=== PATIENT | male | born 1950 | race Two or more races ===

== ENCOUNTER 2024-04-14 10:16 | Outpatient (AMB) | payer MEDICARE, MEDICAID, SELFPAY ==
[2024-04-14 10:23] VITALS: BP 122/74; PULSE 68; RESP 19; TEMP 36.6; O2SAT 94; BMI 33.6
--- NOTE | 2024-04-14 10:23 | PD.GSCLVISIT ---
Vital Signs - [facility] 04/14/24 10:23 Height 1.63 m Height Method Stated Weight 89.443 kg Weight Measurement Method Standing Scale BMI 33.6 BP 122/74 Blood Pressure Source Automatic Cuff Blood Pressure Location Right Upper Arm Position Sitting Respiration 19 Pulse 68 Pulse Source Monitor Temp 97.8 F Temp Source Temporal Artery Scan Pulse Oximetry (%) 94 L Oxygen Delivery Method Room Air Med/Allergies Allergies & Medications Allergies No Known Allergies Allergy (Verified 04/14/24 10:25) Medication Reconciliation lisinopril 40 mg tablet 40 mg PO QDAY 04/06/23 [History Confirmed 04/14/24] tamsulosin 0.4 mg capsule 0.4 mg PO QDAY 03/28/24 [History Confirmed 04/14/24] hydrocortisone 2.5 % topical cream with perineal applicator 1 applic [place] QDAY 03/29/24 [History Confirmed 04/14/24] mesalamine 1,000 mg rectal suppository 1,000 mg WI QHSPRN PRN Pain 03/29/24 [History Confirmed 04/14/24] terbinafine HCl 250 mg tablet 250 mg PO QDAY 03/29/24 [History Confirmed 04/14/24] MA Intake Visit Data Collection New Patient or Established: Established Patient (seen at [facility] within 3 years) Seen by Clinical Staff ONLY (RN/MA): No Reason for Visit:: COLONOSCOPY RESULTS Pain Present Currently: No 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 NO MEDS FOR LONG TIME) and Pneumonia (1 YEAR AGO DUE TO COVID); Negative Chronic Obstructive Pulmonary Disease (COPD) GASTROINTESTINAL: Positive Gastrointestinal Disorders, Diverticulosis, Hemorrhoids and Gastroesophageal Reflux Disease GENITOURINARY: Positive Genitourinary Disorders, Prostate Cancer (HAD SURGERY) and Benign Prostatic Hyperplasia; Negative Renal Disease ENT: Positive Cataracts (ou iol); Negative Glaucoma ENDOCRINE: Negative Endocrine Disorders, Diabetes Mellitus Type 1 or Diabetes Mellitus Type 2 HEMATOLOGIC: Negative Blood Disorders, Anemia or Sickle Cell Disease OTHER HISTORY: Positive Cancer and Prostate Cancer (HAD SURGERY); Negative Falls, Blood Transfusions, Anesthesia Reactions, MRSA, Chicken Pox, Measles or Mumps Surgical History SURGICAL: Positive Abdominal Surgery and Transurethral Resection Social History SMOKING STATUS: Smoking status: Former smoker ALCOHOL: Alcohol Intake: Former ALCOHOL FREQUENCY: Alcohol Intake Frequency: A Few Times a Week HOUSING: Housing: House HPI HPI Narrative Spoke to pt with in-person injection specialist 73M here to follow up colonoscopy. Pt reports feeling well overall, he does have symptoms from hemorrhoids and reports constipation, admits drinking more soda than water ROS Review of Systems Systems Reviewed: All systems reviewed, normal except as documented Objective/Exam General General Appearance: alert, cooperative and well groomed Resp Respiratory exam: Absent respiratory distress Results Colonoscopy report reviewed, polyp hyperplastic Assessment & Plan Diagnosis / Problem List (1) Encounter to discuss colonoscopy results: Status: Acute Assessment & Plan: 73M with average risk s/p colonoscopy with findings of diverticulosis, hyperplastic polyp and internal hemorrhoids. I explained to pt that his next colonoscopy would not be due for 10 years, but since he will be 83 he does not necessarily need to have any more screening. I also encouraged him to increase water intake to improve constipation and hemorrhoid symptoms Advanced Care Planning Advance care planning discussed with:: patient Office Procedures GNS Level of Care Nursing/Assessment Patient Status: Established Patient Nursing Assessment/Reassesment: Medication Reconciliation, Update PMH in EMR and Vital Signs Coordination of Care: Complex Care and Chronic Disease 1-5, Education Complex Pt/Fam, Consent,records obtained, informed consent, Results/Orders obtained and Staff clarify orders Established Patient Charge Established Patient Point Assignment: 95 Established Patient Point Charge: EP Level 3 (80-115) Patient Portal Questionaires Social History Living Situation History Housing: House Tobacco History Smoking Status: Former smoker Alcohol History Alcohol Intake: Former Alcohol Intake Frequency: A Few Times a Week Domestic Abuse History Do You Feel Safe at Home: Yes Review of Systems Report any current symptoms Only answer those that you have currently: Past Medical History Past Medical History Have you ever been diagnosed with any of the following: Neurological Problems Seizures: No Migraine: Yes Cardiology Problems Congestive Heart Failure: No Hypertension: Yes Respiratory Problems Chronic Obstructive Pulmonary Disease (COPD): No Asthma: Yes (CONTROLLED. NO MEDS FOR LONG TIME) Pneumonia: Yes (1 YEAR AGO DUE TO COVID) Stomache/Intestinal Problems Diverticulosis: Yes Hemorrhoids: Yes Gastroesophageal Reflux Disease: Yes Genital/Urinary Problems Renal Disease: No Prostate Cancer: Yes (HAD SURGERY) Benign Prostatic Hyperplasia: Yes Head,Eye,Nose,Throat Problems Cataracts: Yes (ou iol) Glaucoma: No Endocrine Problems Diabetes Mellitus Type 1: No Diabetes Mellitus Type 2: No Blood Problems Anemia: No Sickle Cell Disease: No Other Problems Falls: No Blood Transfusions: No Anesthesia Reactions: No MRSA: No Chicken Pox: No Measles: No Mumps: No Cancer: Yes
== END 2024-04-14 11:05 | disposition home or self-care (01) ==
LOC: HODSRG 10:16
PROVIDERS: PCP Registered Nurse Community Health; Referring Provider Registered Nurse Community Health; Supervising Provider Surgery; Visit Provider Surgery
DX: Z48.815 Encounter for surgical aftercare following surgery on the digestive system (principal); K57.90 Diverticulosis of intestine, part unspecified, without perforation or abscess without bleeding; K63.5 Polyp of colon; K64.8 Other hemorrhoids
CPT/HCPCS: 99213; G0463

== ENCOUNTER 2024-04-24 22:03 | Emergency (ER) | payer MEDICARE, MEDICAID, SELFPAY ==
[2024-04-24 22:04] VITALS: BMI 30.7
[2024-04-24 22:13] VITALS: BP 137/80; PULSE 103; RESP 19; TEMP 36.9; O2SAT 93
--- NOTE | 2024-04-24 22:28 | XR_ITS ---
Examination: PA chest single view Technique: Upright PA chest single view Exam date and time: April 24, 2024 10:32 PM Indications: Coughing beginning one week ago. Findings: Stable pulmonary nodule left lower lobe compared with June 21, 2022 Mild prominence left ventricle Accentuation of bronchovascular markings No lobar pneumonia Impression: Bronchitis pattern
--- NOTE | 2024-04-24 22:29 | EDRME_ITS ---
Rapid Medical Screening Exam [facility] Arrival date/time: 04/24/24 22:03 73M with history of HTN presents to ED with 1 week of worsening cough, SOB, and weakness/dizziness. Patient was seen in clinic and put on Tamiflu (w/o testing), as well as amoxicillin and some cough medicine. Chief Complaint: Flu Like Symptoms Vital signs: Vital Signs Temperature 98.4 F 04/24/24 22:13 Pulse Rate 103 H 04/24/24 22:13 Respiratory Rate 19 04/24/24 22:13 Blood Pressure 137/80 H 04/24/24 22:13 Pulse Oximetry (%) 93 L 04/24/24 22:13 Oxygen Delivery Method Room Air 04/24/24 22:13
--- NOTE | 2024-04-24 22:52 | PD.EDSOB ---
ED SOB =RME/HPI General Chief Complaint: Flu Like Symptoms Stated Complaint: COUGH, DIZZY, HEAD FEELS HEAVY Arrival date/time: 04/24/24 22:03 RME / HPI RME / HPI Narrative: 04/24/24 22:03 73M with history of HTN presents to ED with 1 week of worsening cough, SOB, and weakness/dizziness. Patient was seen in clinic and put on Tamiflu (w/o testing), as well as amoxicillin and some cough medicine. This section includes all my notes and documentations, including HPI, PE, and ED course. Cosme Poon MD HPI: 73-year-old male here with about a week history of worsening cough, productive cough, purulent sputum, and dyspnea. No fever. Has chills on and off. No chest pain. No other complaints. ROS: Respiratory: negative except as documented in HPI. Gastrointestinal: negative except as documented in HPI. Genitourinary: negative except as documented in HPI. Musculoskeletal: negative except as documented in HPI. Skin: negative except as documented in HPI. Neurological: negative except as documented in HPI. Physical Exam: General: Alert and oriented. Hacking cough noted. Eyes: Conjunctivae and lids clear. ENT: No nasal congestion. Pharynx normal. Tympanic membrane normal bilaterally. Neck: Supple. No JVD. Heart: RRR. Lungs: No respiratory distress. Moderately decreased air movement with diffuse rhonchi. Skin: Warm and dry. Neuro: Alert and oriented X 3. I reviewed all diagnostic test results. My interpretation of the EKG is sinus rhythm with nonspecific ST-T changes. My interpretation of the chest x-ray is increased bronchial markings. Blood tests and urine tests are unremarkable. COVID/influenza negative. At this point, diagnoses include bronchitis. Treatment here included prednisone and DuoNeb and Zithromax and Tylenol #3. Significant improvement noted subjectively and objectively. Recommended a trial of treatment at home. Based on my best medical judgment, made decision no further evaluation or treatment indicated at this time. Patient understands and agrees to the discharge instructions customized and printed, see below. Discharge instructions from Dr. Poon: --No physical exertion for 3 days to help rest the lungs. ?No smoking or exposure to smoking or pets or dust or cold or humidity. --Zithromax to kill the germs causing the bronchitis. --Prednisone to help decrease the swelling in the airways. --Albuterol 2 puffs every 4-6 hours for 3 days to help keep the airways open.? Then as needed for cough or shortness of breath. --Tylenol with codeine for severe cough for severe pain. --See a private doctor on 04/29/2024 if not completely better. --Seek immediate medical care with worsening or with any concerns. Cosme Poon MD Related Data Home Medications ?Medication ?Instructions ?Recorded ?Confirmed lisinopril 40 mg tablet 40 mg PO QDAY 04/06/23 04/14/24 tamsulosin 0.4 mg capsule 0.4 mg PO QDAY 03/28/24 04/14/24 hydrocortisone 2.5 % topical cream 1 applic NJ QDAY 03/29/24 04/14/24 with perineal applicator mesalamine 1,000 mg rectal 1,000 mg NJ QHSPRN PRN Pain 03/29/24 04/14/24 suppository terbinafine HCl 250 mg tablet 250 mg PO QDAY 03/29/24 04/14/24 Previous Rx's ?Medication ?Instructions ?Recorded acetaminophen 300 mg-codeine 30 mg 2 tab PO TID PRN pain #20 tabs 04/24/24 tablet albuterol sulfate 90 mcg/actuation 2 inh inhalation QID PRN shortness 04/24/24 aerosol inhaler of breath or wheezing #8.5 grams azithromycin 500 mg tablet 500 mg PO QDAY 3 days #3 tabs 04/24/24 (Zithromax TRI-LOLY) prednisone 50 mg tablet 50 mg PO QDAY 3 days #3 tabs 04/24/24 Allergies Allergy/AdvReac Type Severity Reaction Status Date / Time No Known Allergies Allergy Verified 04/14/24 10:25 Course Quality Measures none Orders Category Date Time Status Bedside COVID-19 Antigen Test NOW Care 04/24/24 22:15 Completed Bedside Influenza A&B Antigen Test NOW Care 04/24/24 22:16 Completed EKG (ED ONLY) *Do not use* NOW Care 04/24/24 22:15 Completed EKG (ED Only) Stat Exams 04/24/24 22:15 Ordered XR chest 1V portable Stat Exams 04/24/24 22:28 Completed B-Type Natriuretic Peptide Stat Lab 04/24/24 22:55 Completed CBC Stat Lab 04/24/24 22:55 Completed Comprehensive Metabolic Panel Stat Lab 04/24/24 22:55 Completed Magnesium Stat Lab 04/24/24 22:55 Completed Procalcitonin Stat Lab 04/24/24 22:55 Completed Troponin I Stat Lab 04/24/24 22:55 Completed Urinalysis Stat Lab 04/24/24 23:07 Completed ACETAMINOPHEN w/COD 300-30 [Tylenol w/Cod #3] Med 04/24/24 22:51 Discontinued 2 tab PO X1 ONE Albuterol/Ipratr Rt Mary [Duoneb Rt Mary] Med 04/24/24 22:28 Discontinued 3 ml INH X1 ONE Azithromycin Po [Zithromax PO] Med 04/24/24 23:17 Discontinued 500 mg PO X1 ONE predniSONE Med 04/24/24 22:51 Discontinued 80 mg PO X1 ONE Vital Signs Vital signs: Vital Signs Temperature 98.4 F 04/24/24 22:13 Pulse Rate 103 H 04/24/24 22:13 Respiratory Rate 19 04/24/24 22:13 Blood Pressure 137/80 H 04/24/24 22:13 Pulse Oximetry (%) 93 L 04/24/24 22:13 Oxygen Delivery Method Room Air 04/24/24 22:13 Shortness of Breath / Dyspnea Patient data External records reviewed:: [facility] previous records Clinical information provided by:: patient and family Social determinants that could affect healthcare access:: none Patient has the following chronic illnesses:: See chart How is presenting disease/condition affected by chronic disease/condition?: exacerbated by Evaluation data The following diagnostics were reviewed and interpreted by me:: lab results, radiology exam(s) and EKG tracing(s) (My interpretation of the EKG is: Sinus rhythm (66 bpm) with nonspecific ST-T changes. Cosme Poon MD) Lab and/or radiology exams considered but not ordered:: None Interpretation Summary: Bronchitis Medications / Prescriptions Medications or Prescriptions considered but not ordered:: None Medication administrations:: Medication Administration History Discontinued Medications Acetaminophen/Codeine Phosphate (Acetaminophen W/Cod 300-30 Tablet) 2 tab PO X1 ONE Stop: 04/24/24 22:52 Last Admin: 04/24/24 23:02 Dose: 2 tab Documented By: CVL Albuterol/Ipratropium (Albuterol/Ipratropium (Duoneb) Rt Mary 3 Ml Nebu) 3 ml INH X1 ONE Stop: 04/24/24 22:29 Last Admin: 04/24/24 23:17 Dose: 3 ml Documented By: MALDONADO Azithromycin (Azithromycin 250 Mg Tablet) 500 mg PO X1 ONE Stop: 04/24/24 23:18 Last Admin: 04/24/24 23:27 Dose: 500 mg Documented By: ANA MARIAL Prednisone (Prednisone 20 Mg Tablet) 80 mg PO X1 ONE Stop: 04/24/24 22:52 Last Admin: 04/24/24 23:03 Dose: 80 mg Documented By: TEE See chart Consultations Consultation(s) initiated? (list below): No Diagnosis Shortness of Breath Differential Diagnosis: acute exacerbation of chronic obstructive airways disease, congestive heart failure, community acquired pneumonia and asthma with exacerbation Most likely diagnosis given after review of the tests above:: Bronchitis Admission Indicated Admission indicated?: not indicated Explain why admission is indicated or not indicated:: No criteria for admission Admission Request Was there a request for admission?: No Disposition Plan Disposition Plan: Discharge Discharge Attestation Discharge Attestation: The patient and all family members were given an opportunity to ask questions and understood the discharge instructions. Discharge instructions specifically effects, indications for sooner follow up or return to the emergency department, and the expected course of current diagnosis. Patient condition: Stable Discharge Plan Plan Patient Disposition: HOME (Self Care) Prescriptions/Referrals Prescriptions/Med Rec: New acetaminophen-codeine 300-30 mg tablet 2 tab PO TID MDD 6 PRN (Reason: pain) Qty: 20 0RF albuterol sulfate 90 mcg/actuation HFA aerosol inhaler 2 inh inhalation QID PRN (Reason: shortness of breath or wheezing) Qty: 8.5 0RF azithromycin [Zithromax TRI-LOLY] 500 mg tablet 500 mg PO QDAY 3 Days Qty: 3 0RF prednisone 50 mg tablet 50 mg PO QDAY 3 Days Qty: 3 0RF No Action lisinopril 40 mg tablet 40 mg PO QDAY tamsulosin 0.4 mg capsule 0.4 mg PO QDAY Patient Comments: TOME 1 C PSULA POR V A ORAL AL ACOSTARSE mesalamine 1,000 mg suppository 1,000 mg [place] QHSPRN PRN (Reason: Pain) Patient Comments: INSERTE 1 SUPPOSITORIO RECTALMENTE TODOS LOS D AL ACOSTARSE hydrocortisone 2.5 % cream with perineal applicator 1 applic NJ QDAY Patient Comments: APLIQUE 1 GRAM RECTALMENTE DIARIO terbinafine HCl 250 mg tablet 250 mg PO QDAY Patient Comments: TOME 1 TABLETA POR V A ORAL TODOS LOS D Referrals: No Primary/Family,Physician [Primary Care Provider] - In 1 week Problem List Clinical Impression: Bronchitis Patient/Caregiver Discharge Instructions Discharge Activity: activity as tolerated Education Materials: ED Bronchitis with Wheezing (Adult) Additional Instructions: Discharge instructions from Dr. Poon: --No physical exertion for 3 days to help rest the lungs. ?No smoking or exposure to smoking or pets or dust or cold or humidity. --Zithromax to kill the germs causing the bronchitis. --Prednisone to help decrease the swelling in the airways. --Albuterol 2 puffs every 4-6 hours for 3 days to help keep the airways open.? Then as needed for cough or shortness of breath. --Tylenol with codeine for severe cough for severe pain. --See a private doctor on 04/29/2024 if not completely better. --Seek immediate medical care with worsening or with any concerns. Print Language: Wallisian Stand Alone Forms: Anjana Award Info., Patient Portal Info Letter
[2024-04-24] MEDS: ACETAMINOPHEN w/COD 300-30 TABLET 2 TAB PO (23:02)
[2024-04-24] MEDS: predniSONE 20 MG TABLET 80 MG PO (23:03)
[2024-04-24 23:09] LABS: Basophils % (Auto) 1 % (0-2.5); Eosinophils % (Auto) 0 % (0-10); Hematocrit 45.9 % (41.0-53.0); Immature Granulocytes % (Auto) 1 % (0-0); Immature Granulocytes Auto 0.06 Thou/mm3 (0.00-0.00); Lymphocytes # (Auto) 0.8 Thou/mm3 (1.0-4.8); Lymphocytes % (Auto) 13 % (10-50); Mean Corpuscular HGB Conc 34.9 g/dl (31.0-37.0); Mean Corpuscular Hemoglobin 30.1 pg (25.0-35.0); Mean Corpuscular Volume 86 fL (80-100); Monocytes # (Auto) 0.5 Thou/mm3 (0.0-0.8); Monocytes % (Auto) 8 % (0-12); Neutrophils % (Auto) 77 % (37-80); Nucleated Red Blood Cell % 0 /100 WBC (0); Platelet Count 259 Thou/mm3 (140-440); RDW Standard Deviation 37.8 fL (35.1-43.9); Red Blood Count 5.31 Miln/mm3 (4.50-5.90); White Blood Count 6.5 Thou/mm3 (3.8-10.6)
[2024-04-24 23:17] LABS: Collection Type, Urine Clean Catch
[2024-04-24] MEDS: ALBUTEROL/IPRATROPIUM (Duoneb) RT SOL 3 ML NEBU INH (23:17)
[2024-04-24 23:21] VITALS: PULSE 91; RESP 18; O2SAT 93
[2024-04-24] MEDS: AZITHROMYCIN 250 MG TABLET 500 MG PO (23:27)
[2024-04-24 23:28] LABS: B-Type Natriuretic Peptide < 20 pg/mL (0-100)
[2024-04-24 23:28] LABS: Bilirubin,Urine Negative (Negative); Blood,Urine Negative (Negative); Clarity,Urine Clear (Clear/Hazy); Color,Urine Lt-Yellow (Lt Yel-Yel); Glucose, Urine Negative (Negative); Ketones,Urine Negative (Negative); Leukocyte Esterase,Urine Negative (Negative); Nitrite,Urine Negative (Negative); PH,Urine 6.5 (5.0-7.0); Protein,Urine Negative (Neg - Trace); RBC,Urine 1 /hpf (0-3); Specific Gravity,Urine 1.016 (1.001-1.035); Squamous Epithelial Cell,Urine 1 /hpf (0-5); Urobilinogen,Urine Negative mg/dL (0.0-1.0); WBC,Urine < 1 /hpf (0-5)
[2024-04-24 23:32] VITALS: RESP 18
[2024-04-24 23:36] LABS: Alanine Aminotransferase 45 U/L (10-49); Albumin, Serum 4.5 gm/dL (3.4-4.8); Albumin/Globulin Ratio 1.7 (1.2-2.2); Alkaline Phosphatase 132 U/L (46-116); Anion Gap 4 (7-16); Aspartate Amino Transferase 29 U/L (0-34); BUN/Creatinine Ratio 17 Ratio (12-20); Bilirubin,Total 0.5 mg/dL (0.3-1.2); Blood Urea Nitrogen 17 mg/dL (9-23); Calcium 9.7 mg/dL (8.3-10.6); Calcium (Corrected) 9.7 mg/dL (8.5-10.1); Carbon Dioxide 30.6 mMol/L (20.0-31.0); Chloride 102 mMol/L (98-107); Estimated Creatinine Clearance 66.7 mL/min (>60); Globulin 2.6 gm/dL (2.3-3.5); Glucose 144 mg/dL (74-106); Magnesium 2.4 mg/dL (1.6-2.6); Osmolality,Calculated 278 (275-295); Potassium 4.6 mMol/L (3.4-5.1); Procalcitonin 0.11 ng/ml (0.0-0.49); Sodium 137 mMol/L (136-145); Total Protein 7.1 gm/dL (5.7-8.2); Troponin I < 0.002 ng/mL (0.0-0.045); eGFR > 60 See Note
== END 2024-04-24 23:33 | disposition home or self-care (01) ==
PROVIDERS: Physician Assistant; Emergency Provider Emergency Medicine
DX: J40 Bronchitis, not specified as acute or chronic (principal)
CPT/HCPCS: 36415; 71045; 80053; 81001; 83735; 83880; 84145; 84484; 85025; 87400; 87811; 93005; 94640; 99283; A9270; J7512

== ENCOUNTER 2024-07-13 01:58 | Inpatient (IN) | payer MEDICARE, MEDICAID, SELFPAY ==
[2024-07-13] VITALS (19 sets, daily range): BP systolic 112–152; BP diastolic 56–85; PULSE 67–100; RESP 16–24; TEMP 36.5–37.1; O2SAT 92–198; BMI 29.7; BMI 31.3
--- NOTE | 2024-07-13 02:06 | PD.EDSOB ---
ED SOB =RME/HPI General Chief Complaint: Shortness of Breath/Dyspnea Stated Complaint: COUGHING,DIFF BREATHING Time Seen by Provider: 07/13/24 02:01 Arrival date/time: 07/13/24 01:58 RME / HPI RME / HPI Narrative: This section includes all my notes and documentations, including HPI, PE, and ED course. Cosme Poon MD HPI: 73yo male with a history of HTN accompanied by his [id number] presents to the ED for a chief complaint of shortness of breath. Daughter states the patient has been coughing with purulent sputum for the last 1 week, reporting it's been progressively getting worse. She states he began feeling short of breath tonight, so she brought him in for evaluation. Patient states his shortness of breath worsens when he lies down. Denies any fever, chills, chest pain or any other associated symptoms. Patient does have an inhaler at home. He is a former tobacco smoker. No other complaints reported. ROS: All negative except as documented in HPI. Physical Exam: General: Alert and oriented. Hacking cough noted. Hypoxia noted. Eyes: Conjunctivae and lids clear. ENT: No nasal congestion. Neck: Supple. Heart: RRR. Lungs: Mild respiratory distress noted. Moderately decreased air movement. Rhonchi bilaterally. Abdomen: Soft and nontender. Legs: No clubbing, cyanosis, edema. Skin: Warm and dry. Neuro: Alert and oriented X 3. I reviewed all diagnostic test results. My interpretation of the EKG is sinus rhythm with no acute ST?T changes. My interpretation of the chest x-ray is equivocal infiltrates, official radiology report is pending. Blood tests and urine tests unremarkable, including negative troponin/D-dimer/BNP. COVID/influenza negative. ABG showed pH 7.38, pCO2 50, pO2 56, pHCO3 29. At this point, diagnoses include acute respiratory failure with hypoxia and lower respiratory infection. Treatment here included Solumedrol, Duoneb, Rocephin, Azithromycin. Significant improvement not noted. I discussed the case with our hospitalist. About the presentation and exam and diagnostics and treatments here. And need of further care in the hospital. Will accept the patient. Cosme Poon MD Related Data Home Medications ?Medication ?Instructions ?Recorded ?Confirmed lisinopril 40 mg tablet 40 mg PO QDAY 04/06/23 04/14/24 tamsulosin 0.4 mg capsule 0.4 mg PO QDAY 03/28/24 04/14/24 hydrocortisone 2.5 % topical cream 1 applic OH QDAY 03/29/24 04/14/24 with perineal applicator mesalamine 1,000 mg rectal 1,000 mg OH QHSPRN PRN Pain 03/29/24 04/14/24 suppository terbinafine HCl 250 mg tablet 250 mg PO QDAY 03/29/24 04/14/24 Previous Rx's ?Medication ?Instructions ?Recorded acetaminophen 300 mg-codeine 30 mg 2 tab PO TID PRN pain #20 tabs 04/24/24 tablet albuterol sulfate 90 mcg/actuation 2 inh inhalation QID PRN shortness 04/24/24 aerosol inhaler of breath or wheezing #8.5 grams Allergies Allergy/AdvReac Type Severity Reaction Status Date / Time No Known Allergies Allergy Verified 04/14/24 10:25 Review of Systems Review of Systems Systems Reviewed: All systems reviewed, normal except as documented ED Exam Narrative Physical exam: As noted in HPI. Course Course Course Narrative: CXR is ordered for determining the etiology of shortness of breath. Quality Measures none Orders Category Date Time Status Bedside COVID-19 Antigen Test NOW Care 07/13/24 02:07 Active Bedside Influenza A&B Antigen Test NOW Care 07/13/24 02:07 Completed COVID-19 Screening Questionnaire NOW Care 07/13/24 02:[address] Screening NOW Care 07/13/24 02:08 Active Decision to Admit X1 Care 07/13/24 02:59 Active EKG (ED ONLY) *Do not use* NOW Care 07/13/24 02:07 Completed Saline [Insert IV] NOW Care 07/13/24 02:[address] angio chest Stat Exams 07/13/24 02:08 Stop Req EKG (ED Only) Stat Exams 07/13/24 02:07 Ordered XR chest 1V portable Stat Exams 07/13/24 02:08 Taken ABG [Arterial Blood Gas] Stat Lab 07/13/24 02:42 Completed BNP [B-Type Natriuretic Peptide] Stat Lab 07/13/24 02:25 Completed CBC Stat Lab 07/13/24 02:25 Completed CMP [Comprehensive Metabolic Panel] Stat Lab 07/13/24 02:25 Completed D-Dimer Stat Lab 07/13/24 02:25 Completed Magnesium Stat Lab 07/13/24 02:25 Completed RSV [Respiratory Syncytial Virus Ag] Stat Lab 07/13/24 02:43 Received TSH [Thyroid Stimulating Hormone] Stat Lab 07/13/24 02:25 Completed Troponin I Stat Lab 07/13/24 02:25 Completed UA, C/S IF [Urinalysis, C/S if Indicated] Stat Lab 07/13/24 02:56 Completed Albuterol/Ipratr Rt Mary [Duoneb Rt Mary] Med 07/13/24 02:07 Discontinued 3 ml INH X1 ONE Azithromycin Inj [Zithromax Inj] 500 mg Med 07/13/24 02:55 Active Sodium Chloride 0.9% 250 ml [Ns] 250 ml IV X1 MethylPREDNISolone.* [SoluMEDROL Inj] Med 07/13/24 02:07 Discontinued 125 mg IVP X1 ONE cefTRIAXone [Rocephin] 1,000 mg Med 07/13/24 02:55 Active Sodium Chloride 0.9% (P) [Ns 0.9% (P)] 50 ml IV X1 Vital Signs Vital signs: Vital Signs Temperature 97.7 F 07/13/24 02:02 Pulse Rate 77 07/13/24 02:02 Respiratory Rate 19 07/13/24 02:02 Blood Pressure 146/85 H 07/13/24 02:02 Pulse Oximetry (%) 93 L 07/13/24 02:02 Oxygen Delivery Method Room Air 07/13/24 02:02 Shortness of Breath / Dyspnea MDM Narrative MDM Narrative:: Scribe Attestation: 07/13/24 Kailey Caballero am scribing for and in the presence of Dr. Poon. Patient data External records reviewed:: [facility] previous records (Per chart review, patient was seen here on 04/24/24 for bronchitis.) Clinical information provided by:: patient and family Social determinants that could affect healthcare access:: substance use (former tobacco smoker) Patient has the following chronic illnesses:: HTN How is presenting disease/condition affected by chronic disease/condition?: uneffected by Evaluation data The following diagnostics were reviewed and interpreted by me:: lab results, radiology exam(s) and EKG tracing(s) (My interpretation of the EKG is: Sinus rhythm (73 bpm) with nonspecific ST-T changes, no change from 01/17/2023 EKG. Cosme Poon MD) Lab and/or radiology exams considered but not ordered:: none Interpretation Summary: Respiratory failure and low respiratory infection Medications / Prescriptions Medications or Prescriptions considered but not ordered:: none Medication administrations:: Medication Administration History Azithromycin 500 mg/ Sodium (Chloride) 250 mls @ 250 mls/hr IV X1 ONE Stop: 07/13/24 03:54 Ceftriaxone Sodium 1,000 mg/ (Sodium Chloride) 50 mls @ 100 mls/hr IV X1 ONE Stop: 07/13/24 03:24 Discontinued Medications Albuterol/Ipratropium (Albuterol/Ipratropium (Duoneb) Rt Mary 3 Ml Nebu) 3 ml INH X1 ONE Stop: 07/13/24 02:08 Last Admin: 07/13/24 02:22 Dose: 3 ml Documented By: KOREY Methylprednisolone Sodium Succinate (Methylprednisolone Sod Succ 62.5 Mg/Ml 2ml Vial) 125 mg IVP X1 ONE Stop: 07/13/24 02:08 Last Admin: 07/13/24 02:35 Dose: 125 mg Documented By: MARK Solumedrol, Duoneb, Rocephin, Azithromycin Consultations Consultation(s) initiated? (list below): No Diagnosis Shortness of Breath Differential Diagnosis: acute exacerbation of chronic obstructive airways disease, congestive heart failure, community acquired pneumonia, asthma with exacerbation and pulmonary embolism Most likely diagnosis given after review of the tests above:: Respiratory failure with lower respiratory infection Admission Indicated Admission indicated?: indicated Explain why admission is indicated or not indicated:: Acute respiratory failure Admission Request Was there a request for admission?: Yes Admission Attestation Admission request attestation: Discussed case with our hospitalist service regarding admission. Discussed patients ED course, exam findings, labs, and radiology results. The Hospitalist [agrees] to accept the patient for admission. Disposition Plan Disposition Plan: Admit Discharge Plan Plan Patient Disposition: Admit Acute Care w/in Hospital Prescriptions/Referrals Prescriptions/Med Rec: No Action lisinopril 40 mg tablet 40 mg PO QDAY tamsulosin 0.4 mg capsule 0.4 mg PO QDAY Patient Comments: TOME 1 C PSULA POR V A ORAL AL ACOSTARSE mesalamine 1,000 mg suppository 1,000 mg OH QHSPRN PRN (Reason: Pain) Patient Comments: INSERTE 1 SUPPOSITORIO RECTALMENTE TODOS LOS D AL ACOSTARSE hydrocortisone 2.5 % cream with perineal applicator 1 applic OH QDAY Patient Comments: APLIQUE 1 GRAM RECTALMENTE DIARIO terbinafine HCl 250 mg tablet 250 mg PO QDAY Patient Comments: TOME 1 TABLETA POR V A ORAL TODOS LOS D acetaminophen-codeine 300-30 mg tablet 2 tab PO TID MDD 6 PRN (Reason: pain) Qty: 20 0RF albuterol sulfate 90 mcg/actuation HFA aerosol inhaler 2 inh inhalation QID PRN (Reason: shortness of breath or wheezing) Qty: 8.5 0RF Problem List Clinical Impression: Acute respiratory failure with hypoxia, Lower respiratory infection Patient/Caregiver Discharge Instructions Print Language: Citizen Of [place] Stand Alone Forms: Anjana Award Info., Patient Portal Info Letter
--- NOTE | 2024-07-13 02:07 | EKG_ITS ---
[facility] Test Date: 2024-07-13 Pat Name: MARÍA ELENA MCCARTHY Department: Room: - Gender: Male Back Hanger: : 1950 Requested By: Cosme Meza Order Number: [id number] Reading MD: Cosme Meza Measurements Intervals [place] Rate: 73 P: 38 [place]: 180 QRS: -29 QRSD: 100 T: 13 QT: 362 QTc: 400 Interpretive Statements SINUS RHYTHM LOW QRS VOLTAGE IN PRECORDIAL LEADS [QRS DEFLECTION < 1.0 mV IN CHEST LEADS] INCOMPLETE RIGHT BUNDLE BRANCH BLOCK [90+ ms QRS DURATION, TERMINAL R IN V1/V2, 40+ ms S IN I/aVL/V4/V5/V6] INFERIOR MYOCARDIAL INFARCTION , PROBABLY OLD [40+ ms Q WAVE AND/OR ST/T ABNORMALITY IN II/aVF] Compared to ECG 01/09/2022 16:26:34 Low QRS voltage now present Myocardial infarct finding now present /store/S0/[id number]/ecg/[id number].pdf
--- NOTE | 2024-07-13 02:08 | XR_ITS ---
Examination: Upright PA chest single view Technique: Upright PA chest single view Exam date and time: July 13, 2024 0212 hrs. Comparison April 24, 2024 Indications: Coughing beginning one week ago. Findings: Early perihilar left upper lobe pneumonia Mild prominence left ventricle Ectatic thoracic aorta Moderate osteopenia Impression: Early bilateral perihilar left upper lobe pneumonia
[2024-07-13] MEDS: ALBUTEROL/IPRATROPIUM (Duoneb) RT SOL 3 ML NEBU INH ×6 (02:22→23:11)
[2024-07-13 02:32] LABS: Basophils # (Auto) 0.1 Thou/mm3 (0.0-0.2); Basophils % (Auto) 1 % (0-2.5); Eosinophils # (Auto) 0.3 Thou/mm3 (0.0-0.5); Eosinophils % (Auto) 6 % (0-10); Hematocrit 44.3 % (41.0-53.0); Hemoglobin 15.2 g/dL (13.5-16.0); Immature Granulocytes % (Auto) 0 % (0-0); Immature Granulocytes Auto 0.02 Thou/mm3 (0.00-0.00); Lymphocytes # (Auto) 0.9 Thou/mm3 (1.0-4.8); Lymphocytes % (Auto) 17 % (10-50); Mean Corpuscular HGB Conc 34.3 g/dl (31.0-37.0); Mean Corpuscular Hemoglobin 29.6 pg (25.0-35.0); Mean Corpuscular Volume 86 fL (80-100); Monocytes # (Auto) 0.6 Thou/mm3 (0.0-0.8); Monocytes % (Auto) 11 % (0-12); Neutrophils # (Auto) 3.5 Thou/mm3 (1.8-7.7); Neutrophils % (Auto) 65 % (37-80); Nucleated Red Blood Cell % 0 /100 WBC (0); Platelet Count 196 Thou/mm3 (140-440); RDW Standard Deviation 38.1 fL (35.1-43.9); Red Blood Count 5.14 Miln/mm3 (4.50-5.90); White Blood Count 5.4 Thou/mm3 (3.8-10.6)
[2024-07-13] MEDS: MethylPREDNISolone SOD SUCC 62.5 MG/ML 2ML VIAL 125 MG IVP (02:35)
[2024-07-13 02:47] LABS: Base Excess 3 (-3-3); HCO3 29 mEq/L (20-26); Inspired Oxygen, FIO2 21 %; O2 Saturation 90 % (91-98); PCO2 50 mmHg (32.0-48.0); pH, Arterial 7.38 (7.35-7.45)
[2024-07-13 02:49] LABS: Allen Test Performed/OK; PO2 56 mmHg (83-108); Puncture Site Right Radial
[2024-07-13 02:50] LABS: B-Type Natriuretic Peptide < 20 pg/mL (0-100)
[2024-07-13 02:53] LABS: D-Dimer < 250 ng/mL (<600)
[2024-07-13 02:54] LABS: Alanine Aminotransferase 17 U/L (10-49); Albumin, Serum 4.3 gm/dL (3.4-4.8); Albumin/Globulin Ratio 1.7 (1.2-2.2); Alkaline Phosphatase 114 U/L (46-116); Anion Gap 5 (7-16); Aspartate Amino Transferase 20 U/L (0-34); BUN/Creatinine Ratio 18 Ratio (12-20); Bilirubin,Total 0.6 mg/dL (0.3-1.2); Blood Urea Nitrogen 18 mg/dL (9-23); Calcium 9.2 mg/dL (8.3-10.6); Calcium (Corrected) 9.2 mg/dL (8.5-10.1); Carbon Dioxide 27.9 mMol/L (20.0-31.0); Chloride 109 mMol/L (98-107); Globulin 2.5 gm/dL (2.3-3.5); Glucose 117 mg/dL (74-106); Magnesium 2.3 mg/dL (1.6-2.6); Osmolality,Calculated 286 (275-295); Potassium 4.5 mMol/L (3.4-5.1); Sodium 142 mMol/L (136-145); Thyroid Stimulating Hormone 1.52 uIU/mL (0.55-4.78); Total Protein 6.8 gm/dL (5.7-8.2); Troponin I < 0.002 ng/mL (0.0-0.045); eGFR > 60 See Note
[2024-07-13 03:00] LABS: Collection Type, Urine Clean Catch
[2024-07-13 03:04] LABS: Bilirubin,Urine Negative (Negative); Blood,Urine Negative (Negative); Clarity,Urine Clear (Clear/Hazy); Color,Urine Lt-Yellow (Lt Yel-Yel); Culture Indicated,Urine Not Indicated; Glucose, Urine Negative (Negative); Ketones,Urine Negative (Negative); Leukocyte Esterase,Urine Negative (Negative); Nitrite,Urine Negative (Negative); PH,Urine 7.5 (5.0-7.0); Protein,Urine Trace (Neg - Trace); RBC,Urine < 1 /hpf (0-3); Specific Gravity,Urine 1.027 (1.001-1.035); Squamous Epithelial Cell,Urine < 1 /hpf (0-5); Urobilinogen,Urine Negative mg/dL (0.0-1.0); WBC,Urine 1 /hpf (0-5)
[2024-07-13] MEDS: cefTRIAXone 1,000 MG in SODIUM CHLORIDE 0.9% (P) 50 ML 100 MG IV ×2 (03:11→21:11)
[2024-07-13] MEDS: AZITHROMYCIN INJ 500 MG in SODIUM CHLORIDE 0.9% 250 ML 250 ML 250 MG IV (03:15)
[2024-07-13 03:19] LABS: Respiratory Syncytial Virus Ag Negative (Negative)
--- NOTE | 2024-07-13 03:42 | ECHO_ITS ---
Transthoracic Echo Report Ht (in): 66.9 Wt (lb): 190 Exam Location: Echo Lab Status: Emergency Saw Tailer: BRENDON Adams Indications: Procedure Performed: BP: / HR: MEASUREMENTS (Male / Female) Normal Values 2D ECHO LA Systolic Diameter LX 3.7 cm 3.0 - 4.0 / 2.7 - 3.8 cm LV Ejection Fraction MOD 4C 57.8 % DOPPLER AV Peak Velocity 193.0 cm/s AV Peak Gradient 14.9 mmHg AV Mean Gradient 11.2 mmHg AV Velocity Time Integral 40.9 cm LVOT Peak Gradient 13.7 mmHg LVOT Velocity Time Integral 33.6 cm TR Peak Velocity 287.5 cm/s TR Peak Gradient 33.1 mmHg PV Peak Gradient 9.6 mmHg FINDINGS Left Ventricle Normal left ventricular size, wall thickness, systolic function with no obvious regional wall motion abnormalities. Normal left ventricular diastolic filling pattern for age. The ejection fraction is visually estimated at 60 % Right Ventricle The right ventricle is normal in size and systolic function. The estimated right ventricular systolic pressure, __ mmHg. Left Atrium The left atrium is normal by two-dimensional, color flow and Doppler imaging with no structural abnormalities, no thrombus formation present. Right Atrium The right atrium is normal by two-dimensional imaging, color flow and Doppler imaging with no structural abnormalities, no thrombus formation present. Atrial Septum The interatrial septum appears normal with no evidence of a shunt. Aorta The aorta is normal by two-dimensional, color flow and Doppler interrogation. Mitral Valve The mitral valve is normal by two-dimensional, color flow and Doppler interrogation. There is no significant mitral valve regurgitation, stenosis or prolapse. Aortic Valve The aortic valve is trileaflet and normal by two-dimensional, color flow and Doppler interrogation. There is no significant aortic valve regurgitation. Tricuspid Valve The tricuspid valve is normal by two-dimensional, color flow and Doppler interrogation. There is no significant tricuspid valve regurgitation. Pulmonic Valve The pulmonic valve is not well visualized. There is no significant pulmonic valve regurgitation. Vessels The pulmonary artery appears normal. The inferior vena cava pulmonary and hepatic veins appear normal. Pericardium The pericardium is normal by two-dimensional imaging. There is no significant pericardial effusion. CONCLUSIONS The transthoracic study is normal by two-dimensional, color flow imaging and Doppler interrogation. Normal left ventricular size and function. Approximate ejection fraction is 65%. Trace mitral and trace tricuspid regurgitation No wall motion abnormalities noted. Oksana SagarReddy (Electronically Signed) Final Date: 17 July 2024 17:12
--- NOTE | 2024-07-13 03:54 | PC.RT ---
pt able to expectorate sputum, small thin yellow sent to lab.
--- NOTE | 2024-07-13 03:55 | ESHP_ITS ---
Documentation for date of: 07/13/24 [facility] History of Present Illness Chief complaint: Shortness of breath, wheezing History of present illness: Ms Ellis is a 73-year-old upper sorbian-speaking male with past medical history of ?COPD/asthma, hypertension and BPH who presented to [facility] emergency department on 07/13/2024 with a chief complaint of shortness of breath. Patient's daughter at bedside assisted with providing history, according to patient his shortness of breath and cough started about a week ago, progressively got worse since yesterday., complains of increased wheezing as well. The daughter reported that the patient was feeling extensively short of breath tonight so she brought him to ED for evaluation. Patient also reports chills, reports feeling hot, denies night sweats or other symptoms. Patient does have an inhaler prescribed at home, was never formally diagnosed with COPD, does not follow with a sustainability coordinator, reports he does not use his inhaler daily. Patient endorsed that his symptoms did not get better with inhaler use. Patient reports extensive history of smoking in past, more than 40 pack years. Patient otherwise complains of headache and constipation. Patient denies any chest pain, nausea and vomiting. ED Course: ED Vitals: On presentation BP 146/85, P 77, RR 19, temp 97.7, O2 sat 93 on 2 L nasal cannula. ED Labs: ED labs significant for ABG pH 7.38, pCO2 50, chloride 109, glucose 117. ED Imaging:Chest x-ray significant for moderate vascular congestion, possible pneumonia bibasilar mild ED Treatment:Patient got DuoNeb breathing treatment x 1, methylprednisolone 125 IV push x 1, ceftriaxone and azithromycin in ED Review of Systems Review of Systems Narrative Review of Systems: ROS: -CONSTITUTIONAL: Denies weight loss, fever and positive for chills. -HEENT: Denies changes in vision and hearing. -RESPIRATORY: Positive for SOB and cough. -CV: Denies palpitations and Chest Pain. -GI: Denies abdominal pain, nausea, vomiting, and diarrhea. Positive for constipation. -: Denies dysuria and urinary frequency. -MSK: Denies myalgia and joint pain. -SKIN: Denies rash and pruritus. -NEUROLOGICAL: Denies syncope. Positive for headache. -PSYCHIATRIC: Denies recent changes in mood. Denies anxiety and depression. Past Medical History Past Medical History Comments PMH COMMENT: PMH: Positive for ?COPD/asthma, hypertension and BPH PSHx: Prostate surgery Allergies: No known allergies Social history: -Smoking: Positive for smoking in past, more than 40 pack years -Alcohol Use: Positive for heavy alcohol use in past, no alcohol use currently -Illicit Drug Use: Denies Family History: Denies any pertinent family history Exam Vital Signs Temp Pulse Resp BP Pulse Ox O2 Del Method O2 Flow Rate 97.7 F 78 21 H 146/85 H 93 L Room Air 2 07/13/24 02:02 07/13/24 03:53 07/13/24 03:53 07/13/24 02:02 07/13/24 03:53 07/13/24 02:02 07/13/24 03:53 Narrative Exam Physical Exam General: Awake and in no acute distress. Conversational and non-toxic appearing. Saturating 94 on 2 L nasal cannula. HEENT: Normocephalic, atraumatic, mucous membranes moist. Heart: Regular rate and rhythm, no murmurs. Lungs: Bilateral wheezing appreciated. Abdomen: Soft, nondistended, nontender, positive bowel sounds. ?No guarding or rebound tenderness. Neurologic: Alert and oriented x3, no gross neurological deficit, and patient able to move all 4 extremities. Extremities: Trace edema noted. Right leg more swollen than left. Skin: No rash or ecchymoses. Results: Labs 07/13/24 04:20 07/13/24 02:25 Labs: Short CBC 07/13/24 Range/Units 02:25 WBC 5.4 (3.8-10.6) Thou/mm3 Hgb 15.2 (13.5-16.0) g/dL Hct 44.3 (41.0-53.0) % Plt Count 196 (140-440) Thou/mm3 BMP 07/13/24 02:25 Sodium 142 Potassium 4.5 Chloride 109 H Carbon Dioxide 27.9 BUN 18 Creatinine 1.0 Glucose 117 H Calcium 9.2 Cardiac Enzymes 07/13/24 Range/Units 02:25 Troponin I < 0.002 (0.0-0.045) ng/mL Liver Function 07/13/24 Range/Units 02:25 Total Bilirubin 0.6 (0.3-1.2) mg/dL AST 20 (0-34) U/L ALT 17 (10-49) U/L Alkaline Phosphatase 114 (46-116) U/L Albumin 4.3 (3.4-4.8) gm/dL Urine 07/13/24 Range/Units 02:56 Urine Color Lt-Yellow (Lt Yel-Yel) Urine Clarity Clear (Clear/Hazy) Urine pH 7.5 H (5.0-7.0) Ur Specific Mclean 1.027 (1.001-1.035) Urine Protein Trace (Neg - Trace) Urine Glucose (UA) Negative (Negative) ABG Interpretation ABG results: 07/13/24 02:42 ABG pH 7.38 ABG pCO2 50 H ABG pO2 56 L* ABG HCO3 29 H ABG O2 Saturation 90 L ABG Base Excess 3 Quality Measures Quality Measures none Advance care planning discussed with:: patient Medications Home Medications and Allergies Home Medications ?Medication ?Instructions ?Recorded ?Confirmed ?Type lisinopril 40 mg tablet 40 mg PO QDAY 04/06/2304/14 History tamsulosin 0.4 mg capsule 0.4 mg PO QDAY 03/28/2404/01 History hydrocortisone 2.5 % topical cream 1 applic OH QDAY 04/14/24 History with perineal applicator mesalamine 1,000 mg rectal 1,000 mg OH QHSPRN PRN Pain 03/29/24 04/14/24 History suppository terbinafine HCl 250 mg tablet 250 mg PO QDAY 03/29/24 04/14/24 History Allergies Allergy/AdvReac Type Severity Reaction Status Date / Time No Known Allergies Allergy Verified 04/14/24 10:25 Visit Medications Acetaminophen (Acetaminophen 325 Mg Tablet) 650 mg PO Q6H PRN PRN Reason: Fever >101.5 Stop: 08/12/24 03:39 Acetaminophen (Acetaminophen 325 Mg Tablet) 650 mg PO Q6H PRN PRN Reason: PAIN SCALE 1-3 (mild Stop: 08/12/24 03:39 Acetylcysteine (Acetylcysteine Rt Mary 10% 4 Ml Nebu) 4 ml INH Q6HRRT SENIA Stop: 08/12/24 06:59 Albuterol/Ipratropium (Albuterol/Ipratropium (Duoneb) Rt Mary 3 Ml Nebu) 3 ml INH Q4HRRT SENIA Stop: 08/12/24 06:59 Heparin Sodium (Porcine) (Heparin Sod Inj 5000 Unit/Ml Vial) 5,000 unit SC Q12H [facility] Stop: 07/27/24 03:44 Ceftriaxone Sodium/Dextrose (Rocephin/D5w 1gm Iv Premix) 50 mls @ 100 mls/hr IV QDAY [facility] Stop: 07/20/24 03:46 Azithromycin 500 mg/ Sodium (Chloride) 250 mls @ 250 mls/hr IV QDAY [facility] Stop: 07/20/24 03:46 Methylprednisolone Sodium Succinate (Methylprednisolone Sod Succ 40 Mg Vial) 40 mg IVP Q8HR [facility] Stop: 07/20/24 05:59 Ondansetron HCl (Ondansetron Inj 2 Mg/Ml Inj 2 Ml) 4 mg IV Q6H PRN; Protocol PRN Reason: NAUSEA OR VOMITING Stop: 08/12/24 03:39 Sennosides (Senna Tablet) 1 tab PO QDAY [facility]; Protocol Stop: 08/12/24 08:59 Discontinued Medications Albuterol/Ipratropium (Albuterol/Ipratropium (Duoneb) Rt Mary 3 Ml Nebu) 3 ml INH X1 ONE Stop: 07/13/24 02:08 Last Admin: 07/13/24 02:22 Dose: 3 ml Azithromycin 500 mg/ Sodium (Chloride) 250 mls @ 250 mls/hr IV X1 ONE Stop: 07/13/24 03:54 Last Admin: 07/13/24 03:15 Dose: 250 mls/hr Ceftriaxone Sodium 1,000 mg/ (Sodium Chloride) 50 mls @ 100 mls/hr IV X1 ONE Stop: 07/13/24 03:24 Last Infusion: 07/13/24 03:41 Dose: Infused Methylprednisolone Sodium Succinate (Methylprednisolone Sod Succ 62.5 Mg/Ml 2ml Vial) 125 mg IVP X1 ONE Stop: 07/13/24 02:08 Last Admin: 07/13/24 02:35 Dose: 125 mg Methylprednisolone Sodium Succinate (Methylprednisolone Sod Succ 40 Mg Vial) 40 mg IVP Q8HR ONE Stop: 07/13/24 06:01 Sodium Chloride (Sodium Chloride Rt 10% 15 Ml Nebu) 5 ml INH X1 ONE Stop: 07/13/24 03:41 Last Admin: 07/13/24 03:52 Dose: Not Given Assessment & Plan Plan Assessment and Plan: Summary: Ms Ellis is a 73-year-old upper sorbian-speaking male with past medical history of ?COPD/asthma, hypertension and BPH who presented to [facility] emergency department on 07/13/2024 with a chief complaint of shortness of breath. Patient admitted for acute hypoxic and hypercapnic respiratory failure in setting of COPD exacerbation and possible pneumonia. #Acute hypoxic and hypercapnic respiratory failure #COPD exacerbation #?Pneumonia Patient complained of significant respiratory distress, on presentation in ED per ED physician patient was hypoxic was started on nasal cannula oxygen, ABG shows pCO2 50, mildly hypercapnic per chart review patient's bicarb has been more than 25, patient possibly mild CO2 retainer, bilateral wheezing appreciated patient's symptoms improved after ipratropium breathing treatment and IV methylprednisolone. Chest x-ray shows moderate vascular congestion bilaterally, concern of bilateral pneumonia. Patient was given ceftriaxone and azithromycin in ED Plan: -Continue ceftriaxone and azithromycin (07/13- -IV Solu-Medrol 40 mg every 8 hours -DuoNeb every 4 hour SLAG DUMPER -Mucomyst every 6 hour -Ordered flu, COVID, RSV, MRSA nasal screen -Follow sputum culture -Supplemental oxygen as needed -Tylenol as needed #Vascular congestion on chest x-ray #Trace bilateral lower extremity edema #Concern of congestive heart failure Chest x-ray significant for moderate vascular congestion, patient does endorse some orthopnea, trace bilateral lower extremity edema. Concern of CHF, no echo on file, patient denies history of heart failure, does have history of longstanding hypertension. Right leg more swollen than left. Plan: -Daily weight -Strict intake and output -Fluid restriction 1500 cc -Bilateral lower extremity venous Doppler to rule out DVT -Ordered echocardiogram -Follow lipid panel, A1c #Hypertension #BPH #Constipation, history of hemorrhoids Resumed home dose lisinopril Resumed home dose tamsulosin Started on senna daily DVT prophylaxis: Heparin every 12 hours GI prophylaxis: Not indicated Diet: Cardiac, fluid restriction 1500 cc Lines: Peripheral IV Code status: Full code Case discussed with Attending Dr. Jeffers. Nancy Maldonado PGY1 Disclaimer: This note was dictated by speech recognition. Minor errors in assigner may be present due to voice recognition software. Attending Provider Attestation/Addendum 73-year-old male patient was seen in the emergency room with chief complaint of shortness of breath wheezing occasional cough. He has minimal expectoration. He has felt feverish earlier. He is not dizzy or lightheaded. The patient has COPD. He will be admitted for COPD exacerbation and possible pneumonia. The patient will receive inhaled bronchodilator treatment, steroid and antibiotic.
--- NOTE | 2024-07-13 04:26 | XR_ITS ---
Examination: Venous duplex lower extremity sonogram, bilateral. Date and time of exam: July 13, 2024 0854 hours INDICATIONS: Bilateral leg edema beginning today, leg weakness years Technique: Multiple sonographic images of the deep venous system have been obtained. B-mode/2-D grayscale imaging of vascular structures and Doppler spectral analysis (waveforms) and color performed Both legs are examined. Findings: Deep venous systems do not demonstrate abnormal echogenicity. All visualized deep veins exhibit compressibility. All visualized deep veins exhibit augmentation. Impression: Negative for deep vein thrombosis
[2024-07-13 04:53] LABS: Basophils # (Auto) 0.1 Thou/mm3 (0.0-0.2); Basophils % (Auto) 1 % (0-2.5); Eosinophils # (Auto) 0.2 Thou/mm3 (0.0-0.5); Eosinophils % (Auto) 3 % (0-10); Hematocrit 44.4 % (41.0-53.0); Hemoglobin 15.3 g/dL (13.5-16.0); Immature Granulocytes % (Auto) 1 % (0-0); Immature Granulocytes Auto 0.03 Thou/mm3 (0.00-0.00); Lymphocytes # (Auto) 0.7 Thou/mm3 (1.0-4.8); Lymphocytes % (Auto) 11 % (10-50); Mean Corpuscular HGB Conc 34.5 g/dl (31.0-37.0); Mean Corpuscular Volume 87 fL (80-100); Monocytes # (Auto) 0.3 Thou/mm3 (0.0-0.8); Monocytes % (Auto) 4 % (0-12); Neutrophils % (Auto) 81 % (37-80); Nucleated Red Blood Cell % 0 /100 WBC (0); Platelet Count 169 Thou/mm3 (140-440); RDW Standard Deviation 38.5 fL (35.1-43.9); White Blood Count 6.3 Thou/mm3 (3.8-10.6)
[2024-07-13 05:14] LABS: Alanine Aminotransferase 16 U/L (10-49); Albumin, Serum 4.1 gm/dL (3.4-4.8); Albumin/Globulin Ratio 1.8 (1.2-2.2); Alkaline Phosphatase 115 U/L (46-116); Anion Gap 5 (7-16); Aspartate Amino Transferase 17 U/L (0-34); BUN/Creatinine Ratio 21 Ratio (12-20); Bilirubin,Total 0.4 mg/dL (0.3-1.2); Blood Urea Nitrogen 19 mg/dL (9-23); Carbon Dioxide 27.1 mMol/L (20.0-31.0); Cardiac Risk Estimate 3.3 RATIO (4.0-6.7); Chloride 109 mMol/L (98-107); Cholesterol 169 mg/dL (132-200); Creatinine (Component) 0.9 mg/dL (0.6-1.3); Estimated Creatinine Clearance 75.5 mL/min (>60); Globulin 2.3 gm/dL (2.3-3.5); Glucose 125 mg/dL (74-106); HDL Cholesterol 52 mg/dL (40-60); LDL Cholesterol,Calculated 98 mg/dL (0-130); Magnesium 2.1 mg/dL (1.6-2.6); Osmolality,Calculated 284 (275-295); Potassium 4.7 mMol/L (3.4-5.1); Sodium 141 mMol/L (136-145); Total Protein 6.4 gm/dL (5.7-8.2); Triglycerides 94 mg/dL (30-150); eGFR > 60 See Note
--- NOTE | 2024-07-13 08:42 | PC.NURSE ---
PT TO ULTRASOUND
--- NOTE | 2024-07-13 09:35 | PC.NURSE ---
RESIDENT AT BEDSIDE TO SEE PT
[2024-07-13] MEDS: TAMSULOSIN HCL 0.4 MG CAPSULE PO (09:49)
[2024-07-13] MEDS: Lisinopril 20 MG TABLET 40 MG PO (09:49)
[2024-07-13] MEDS: HEPARIN SOD INJ 5000 UNIT/ML VIAL SC ×2 (09:50→21:15)
[2024-07-13] MEDS: SENNA TABLET 1 TAB PO (09:50)
--- NOTE | 2024-07-13 11:38 | PC.NURSE ---
ULTRASOUND AT BEDSIDE
--- NOTE | 2024-07-13 13:05 | ESPR_ITS ---
<Statement entered by Dominga Rebollar MD - 07/13/24 17:26> I discussed with and supervised my co-resident involved in the care of this patient. I agree with the assessment and plan as documented above. Patient seen and examined at bedside. He has significant expiratory wheezes, worst on the left lung. On 6L Oxymask, saturating well. For his COPD exacerbation, will continue oxygen as needed for goal SpO2 99=92%, azithromycin and ceftriaxone, steroids. Will follow up echo for patient. Dominga Rebollar MD PGY-3 Documentation for date of: 07/13/24 Subjective Subjective Interval history: Patient was seen at bedside this morning. No overnight events. Patient today was doing well and stated that he was doing a lot better. He still had some wheezing bilateral, but no other complaints at this time and no spikes in fevers. Exam Vital Signs Temp Pulse Resp BP Pulse Ox O2 Del Method O2 Flow Rate 98.6 F 80 16 129/69 92 L Oxy Mask 8 07/13/24 10:35 07/13/24 11:19 07/13/24 11:19 07/13/24 10:35 07/13/24 11:19 07/13/24 10:35 07/13/24 11:19 Narrative Exam General: A/O x3, no acute distress, ill appearing Eyes: PERRL, EOMI. Anicteric, vision grossly intact. Ears: No ear pain, no ear discharge, Hearing grossly intact. Nose: No nasal discharge. Mouth/Throat: Dry mucous membranes, no redness, no lesions. Neck: Neck supple, non-tender, no cervical lymphadenopathy. Lungs: Wheezing, No accessory muscle use. Cardio: Normal S1/S2, regular rhythm, no murmurs, no JVD Abdomen: Soft, but distended, non-tender, no palpable masses, peristalsis present, no guarding or rebound. Extremities: Symmetrical, no significant deformities, trace peripheral edema , non-tender, peripheral pulses presents. Skin: No rashes, no lesions, warm to touch. Neuro: No focal neurological deficits. motor and sensory intact Objective Labs 07/14/24 04:25 07/14/24 04:25 Labs: Laboratory Results - last 24 hr 07/13/24 07/13/24 07/13/24 02:25 02:42 02:43 WBC 5.4 RBC 5.14 Hgb 15.2 Hct 44.3 MCV 86 MCH 29.6 MCHC 34.3 RDW Std Deviation 38.1 Plt Count 196 Neut % (Auto) 65 Lymph % (Auto) 17 [place] % (Auto) 11 Eos % (Auto) 6 Baso % (Auto) 1 Neut # (Auto) 3.5 Lymph # (Auto) 0.9 L [place] # (Auto) 0.6 Eos # (Auto) 0.3 Baso # (Auto) 0.1 Immature Gran # (Auto) 0.02 H Absolute Nucleated RBC 0.00 Immature Gran % 0 Nucleated RBC % 0 D-Dimer < 250 Puncture Site Right Radial ABG pH 7.38 ABG pCO2 50 H ABG pO2 56 L* ABG HCO3 29 H ABG O2 Saturation 90 L ABG Base Excess 3 FiO2 21 Sodium 142 Potassium 4.5 Chloride 109 H Carbon Dioxide 27.9 Anion Gap 5 L BUN 18 Creatinine 1.0 Estim Creat Clear Calc 68.0 eGFR > 60 BUN/Creatinine Ratio 18 Glucose 117 H Calculated Osmolality 286 Calcium 9.2 Corrected Calcium 9.2 Magnesium 2.3 Total Bilirubin 0.6 AST 20 ALT 17 Alkaline Phosphatase 114 Troponin I < 0.002 B-Natriuretic Peptide < 20 Total Protein 6.8 Albumin 4.3 Globulin 2.5 Albumin/Globulin Ratio 1.7 Triglycerides Cholesterol LDL Cholesterol, Calc HDL Cholesterol Cholesterol/HDL Ratio TSH 1.52 Ur Collection Type Urine Color Urine Clarity Urine pH Ur Specific [place] Urine Protein Urine Glucose (UA) Urine Ketones Urine Blood Urine Nitrite Urine Bilirubin Urine Urobilinogen (Auto) Ur Leukocyte Esterase Urine RBC Urine WBC Ur Squamous Epith Cells Urine Bacteria Ur Culture Indicated? RSV Rapid Negative 07/13/24 07/13/24 02:56 04:20 WBC 6.3 RBC 5.10 Hgb 15.3 Hct 44.4 MCV 87 MCH 30.0 MCHC 34.5 RDW Std Deviation 38.5 Plt Count 169 Neut % (Auto) 81 H Lymph % (Auto) 11 [place] % (Auto) 4 Eos % (Auto) 3 Baso % (Auto) 1 Neut # (Auto) 5.0 Lymph # (Auto) 0.7 L [place] # (Auto) 0.3 Eos # (Auto) 0.2 Baso # (Auto) 0.1 Immature Gran # (Auto) 0.03 H Absolute Nucleated RBC 0.00 Immature Gran % 1 H Nucleated RBC % 0 D-Dimer Puncture Site ABG pH ABG pCO2 ABG pO2 ABG HCO3 ABG O2 Saturation ABG Base Excess FiO2 Sodium 141 Potassium 4.7 Chloride 109 H Carbon Dioxide 27.1 Anion Gap 5 L BUN 19 Creatinine 0.9 Estim Creat Clear Calc 75.5 eGFR > 60 BUN/Creatinine Ratio 21 H Glucose 125 H Calculated Osmolality 284 Calcium 9.0 Corrected Calcium 9.0 Magnesium 2.1 Total Bilirubin 0.4 AST 17 ALT 16 Alkaline Phosphatase 115 Troponin I B-Natriuretic Peptide Total Protein 6.4 Albumin 4.1 Globulin 2.3 Albumin/Globulin Ratio 1.8 Triglycerides 94 Cholesterol 169 LDL Cholesterol, Calc 98 HDL Cholesterol 52 Cholesterol/HDL Ratio 3.3 L TSH Ur Collection Type Clean Catch Urine Color Lt-Yellow Urine Clarity Clear Urine pH 7.5 H Ur Specific [place] 1.027 Urine Protein Trace Urine Glucose (UA) Negative Urine Ketones Negative Urine Blood Negative Urine Nitrite Negative Urine Bilirubin Negative Urine Urobilinogen (Auto) Negative Ur Leukocyte Esterase Negative Urine RBC < 1 Urine WBC 1 Ur Squamous Epith Cells < 1 Urine Bacteria None Ur Culture Indicated? Not Indicated RSV Rapid ABG Interpretation ABG results: 07/13/24 02:42 ABG pH 7.38 ABG pCO2 50 H ABG pO2 56 L* ABG HCO3 29 H ABG O2 Saturation 90 L ABG Base Excess 3 Quality Measures Quality Measures none Advance care planning discussed with:: patient Assessment & Plan Assessment Current Active Medications: Generic Name Dose Route Start Last Admin Trade Name Freq PRN Reason Stop Dose Admin Acetaminophen 650 mg 07/13/24 03:40 Acetaminophen 325 Mg Tablet PO 08/12/24 03:39 Q6H PRN Fever >101.5 Acetaminophen 650 mg 07/13/24 03:40 Acetaminophen 325 Mg Tablet PO 08/12/24 03:39 Q6H PRN PAIN SCALE 1-3 (mild Acetylcysteine 4 ml 07/13/24 06:18 Acetylcysteine Rt Mary 10% 4 Ml Nebu INH 08/12/24 06:59 Q4HRRT PRN SPUTUM CLEARANCE Albuterol/Ipratropium 3 ml 07/13/24 07:00 07/13/24 11:18 Albuterol/Ipratropium (Duoneb) Rt Mary 3 Ml Nebu INH 08/12/24 06:59 3 ml Q4HRRT SENIA Administration Heparin Sodium (Porcine) 5,000 unit 07/13/24 09:00 07/13/24 09:50 Heparin Sod Inj 5000 Unit/Ml Vial SC 07/27/24 08:59 5,000 unit Q12HR SENIA Administration Ceftriaxone Sodium 1,000 mg/ 50 mls @ 100 mls/hr 07/13/24 21:00 Sodium Chloride IV 07/20/24 20:59 QPM SENIA Azithromycin 500 mg/ Sodium 250 mls @ 250 mls/hr 07/13/24 03:47 07/13/24 04:03 Chloride IV 07/20/24 03:46 Not Given QDAY SENIA Lisinopril 40 mg 07/13/24 09:00 07/13/24 09:49 Lisinopril 20 Mg Tablet PO 08/12/24 08:59 40 mg QDAY SENIA Administration Methylprednisolone Sodium Succinate 40 mg 07/13/24 21:00 Methylprednisolone Sod Succ 40 Mg Vial IVP 07/20/24 20:59 BID SENIA Ondansetron HCl 4 mg 07/13/24 03:40 Ondansetron Inj 2 Mg/Ml Inj 2 Ml IV 08/12/24 03:39 Q6H PRN NAUSEA OR VOMITING Protocol Sennosides 1 tab 07/13/24 09:00 07/13/24 09:50 Senna Tablet PO 08/12/24 08:59 1 tab QDAY SENIA Administration Protocol Tamsulosin HCl 0.4 mg 07/13/24 09:00 07/13/24 09:49 Tamsulosin Hcl 0.4 Mg Capsule PO 08/12/24 08:59 0.4 mg QDAY SENIA Administration Plan 83-year-old male with past medical history of COPD, BPH, hypertension was admitted to the hospital on 07/13/2024 due to acute hypoxic and hypercapnic respiratory failure likely secondary to COPD exacerbation in the setting of community-acquired pneumonia. #Acute hypoxic and hypercapnic respiratory failure #COPD exacerbation #Community-acquired pneumonia ? Patient initially came in with complaints of shortness of breath and cough for 1 week ? Initial influenza COVID and RSV were all negative. ? Initial ABG showed hypoxia with some hypercapnia ?Chest x-ray that show left upper lobe pneumonia ? Patient has a history of smoking, but quit 10 years ago Plan: ? Continue azithromycin and Rocephin [07/13/2024?] ? Continue Solu-Medrol 40 mg IV [07/13/2024?] ?Pending cocci and sputum cultures ?Continue DuoNebs scheduled every 4 ? Will continue to monitor #Concern for congestive heart failure ? Patient initially came in with shortness of breath and there was some trace bilateral lower extremity edema ?BNP was less than 20 ?Most likely no heart failure, but will follow-up on echo ordered Plan: ? Echo ordered ? Strict LIDIA's ? Daily weights ? Fluid restrictions ? Low-sodium diet ? Continue to monitor #Hx of hypertension #Hx of BPH ? Continue tamsulosin and lisinopril Disposition: Patient admitted for COPD exacerbation, pending echo and continue IV abx and solumedrol Diet: Cardiac GI prophylaxis: protonix DVT prophylaxis: SCDs Code: Full Case disclosed with Attending Dr. Mathis and My senior Dr. Rebollar PGY3. Yousif Menjivar PGY1 Attending Provider Attestation/Addendum I have discussed and was present for the essential components of the history, physical examination, diagnosis, and treatment plan with the resident. I agree with the patient's care as documented by the resident and amended herein by me. Fabio Mathis DO. Although this document has been carefully reviewed, there may still be some phonetic and other typographical errors. These errors are purely grammatical due to imperfections in the software program and should not be construed in any way to compromise the substance of the patient's medical care during this visit.
[2024-07-13 13:47] LABS: Cocci Serology, IgM Negative (Negative)
[2024-07-13] MEDS: PANTOPRAZOLE 40 MG TABLET PO (16:19)
[2024-07-13] MEDS: ACETAMINOPHEN 325 MG TABLET 650 MG PO (16:20)
--- NOTE | 2024-07-13 17:19 | PC.NURSE ---
REPORT GIVEN TO SOBEIDA ON MED/TELE FLOOR. PT TO GO TO ROOM 381
[2024-07-14] VITALS (15 sets, daily range): BP systolic 99–134; BP diastolic 56–77; PULSE 65–94; RESP 16–23; TEMP 36.3–37.2; O2SAT 94–98
[2024-07-14] MEDS: ALBUTEROL/IPRATROPIUM (Duoneb) RT SOL 3 ML NEBU INH ×6 (03:09→22:43)
[2024-07-14 05:51] LABS: Basophils % (Auto) 0 % (0-2.5); Eosinophils % (Auto) 0 % (0-10); Hematocrit 41.6 % (41.0-53.0); Hemoglobin 14.2 g/dL (13.5-16.0); Immature Granulocytes % (Auto) 0 % (0-0); Immature Granulocytes Auto 0.03 Thou/mm3 (0.00-0.00); Lymphocytes # (Auto) 0.6 Thou/mm3 (1.0-4.8); Lymphocytes % (Auto) 8 % (10-50); Mean Corpuscular HGB Conc 34.1 g/dl (31.0-37.0); Mean Corpuscular Volume 88 fL (80-100); Monocytes # (Auto) 0.2 Thou/mm3 (0.0-0.8); Monocytes % (Auto) 3 % (0-12); Neutrophils # (Auto) 6.7 Thou/mm3 (1.8-7.7); Neutrophils % (Auto) 89 % (37-80); Nucleated Red Blood Cell % 0 /100 WBC (0); Platelet Count 175 Thou/mm3 (140-440); RDW Standard Deviation 39.7 fL (35.1-43.9); Red Blood Count 4.74 Miln/mm3 (4.50-5.90); White Blood Count 7.6 Thou/mm3 (3.8-10.6)
[2024-07-14 06:38] LABS: Partial Thromboplastin Time 28.2 Seconds (22.0-36.0); Prothrombin Time 10.7 Seconds (9.0-12.2)
[2024-07-14 06:40] LABS: Alanine Aminotransferase 13 U/L (10-49); Albumin, Serum 3.9 gm/dL (3.4-4.8); Albumin/Globulin Ratio 1.9 (1.2-2.2); Alkaline Phosphatase 92 U/L (46-116); Anion Gap 8 (7-16); Aspartate Amino Transferase 10 U/L (0-34); BUN/Creatinine Ratio 27 Ratio (12-20); Bilirubin,Total 0.3 mg/dL (0.3-1.2); Blood Urea Nitrogen 27 mg/dL (9-23); Calcium 9.1 mg/dL (8.3-10.6); Calcium (Corrected) 9.2 mg/dL (8.5-10.1); Carbon Dioxide 25.8 mMol/L (20.0-31.0); Chloride 108 mMol/L (98-107); Estimated Creatinine Clearance 69.6 mL/min (>60); Globulin 2.1 gm/dL (2.3-3.5); Glucose 130 mg/dL (74-106); Magnesium 2.2 mg/dL (1.6-2.6); Osmolality,Calculated 290 (275-295); Potassium 4.4 mMol/L (3.4-5.1); Sodium 142 mMol/L (136-145); eGFR > 60 See Note
[2024-07-14] MEDS: TAMSULOSIN HCL 0.4 MG CAPSULE PO (08:48)
[2024-07-14] MEDS: PANTOPRAZOLE 40 MG TABLET PO (08:48)
[2024-07-14] MEDS: Lisinopril 20 MG TABLET 40 MG PO (08:48)
[2024-07-14] MEDS: SENNA TABLET 1 TAB PO (08:48)
[2024-07-14] MEDS: HEPARIN SOD INJ 5000 UNIT/ML VIAL SC ×2 (08:49→21:01)
--- NOTE | 2024-07-14 09:30 | PC.SS ---
Patient Matt Ellis is a 73 Year old male admitted for AHRF, COPD, EXAC, PNA. SS met with patient at bedside to complete initial assessment. Patient appeared to be alert and oriented to place time and situation. Patient reports he lives at home with family. Patient identifies his daughter, Deanne Abarca as medical decision maker, [phone]. Patient reports that prior to admission he was able to ambulate independently, patient is able to complete all ADL's independently. PCP is Deanne Garzon. Choice of pharmacy is [facility]. At time of discharge patient will return home. Next of Kin: Daughter, Deanne Abarca Discharge plan: Home
[2024-07-14] MEDS: AZITHROMYCIN INJ 500 MG in SODIUM CHLORIDE 0.9% 250 ML 250 ML 250 MG IV (10:50)
--- NOTE | 2024-07-14 11:26 | ESPR_ITS ---
<Statement entered by Dominga Rebollar MD - 07/14/24 11:53> I discussed with and supervised my co-resident involved in the care of this patient. I agree with the assessment and plan as documented above. Patient seen at bedside. Respiratory status improved, no longer tachypneic and saturating well on 5L Oxymask. Still significant expiratory wheezing most prominent over left lung. Will transition to oral steroids and continue IV antibiotics, breathing treatments for his COPD exacerbation. Echo pending read. Dominga Rebolalr MD PGY-3 Documentation for date of: 07/14/24 Subjective Subjective Interval history: Patient was seen at bedside this morning. No overnight events. Patient is doing a lot better today and is currently on nasal cannula at 5 L and saturating well. Patient still has some expiratory wheezing therefore we will continue with the Solu-Medrol for today. Echo was taken, but is pending the read. Switched Solu-Medrol to prednisone 40mg qdya for 14 days Anticipate possible discharge in the next 24 to 48 hours. Exam Vital Signs Temp Pulse Resp BP Pulse Ox O2 Del Method O2 Flow Rate 97.5 F 78 23 H 99/63 94 L Oxy Mask 5 07/14/24 08:00 07/14/24 10:19 07/14/24 10:19 07/14/24 08:48 07/14/24 10:19 07/14/24 08:00 07/14/24 10:19 FiO2 6 07/14/24 08:00 Narrative Exam General: A/O x3, no acute distress, ill appearing Eyes: PERRL, EOMI. Anicteric, vision grossly intact. Ears: No ear pain, no ear discharge, Hearing grossly intact. Nose: No nasal discharge. Mouth/Throat: Dry mucous membranes, no redness, no lesions. Neck: Neck supple, non-tender, no cervical lymphadenopathy. Lungs: Expiratory wheezing, No accessory muscle use. Cardio: Normal S1/S2, regular rhythm, no murmurs, no JVD Abdomen: Soft, but distended, non-tender, no palpable masses, peristalsis present, no guarding or rebound. Extremities: Symmetrical, no significant deformities, no peripheral edema , non-tender, peripheral pulses presents. Skin: No rashes, no lesions, warm to touch. Neuro: No focal neurological deficits. motor and sensory intact Objective Labs 07/14/24 04:25 07/14/24 04:25 Labs: Laboratory Results - last 24 hr 07/13/24 07/14/24 04:20 04:25 WBC 7.6 RBC 4.74 Hgb 14.2 Hct 41.6 MCV 88 MCH 30.0 MCHC 34.1 RDW Std Deviation 39.7 Plt Count 175 Neut % (Auto) 89 H Lymph % (Auto) 8 L [place] % (Auto) 3 Eos % (Auto) 0 Baso % (Auto) 0 Neut # (Auto) 6.7 Lymph # (Auto) 0.6 L [place] # (Auto) 0.2 Eos # (Auto) 0.0 Baso # (Auto) 0.0 Immature Gran # (Auto) 0.03 H Absolute Nucleated RBC 0.00 Immature Gran % 0 Nucleated RBC % 0 PT 10.7 INR 1.0 APTT 28.2 Sodium 142 Potassium 4.4 Chloride 108 H Carbon Dioxide 25.8 Anion Gap 8 BUN 27 H Creatinine 1.0 Estim Creat Clear Calc 69.6 eGFR > 60 BUN/Creatinine Ratio 27 H Glucose 130 H Calculated Osmolality 290 Calcium 9.1 Corrected Calcium 9.2 Phosphorus 4.0 Magnesium 2.2 Total Bilirubin 0.3 AST 10 ALT 13 Alkaline Phosphatase 92 D Total Protein 6.0 Albumin 3.9 Globulin 2.1 L Albumin/Globulin Ratio 1.9 Coccidioides IgM Ab Negative ABG Interpretation ABG results: 07/13/24 02:42 ABG pH 7.38 ABG pCO2 50 H ABG pO2 56 L* ABG HCO3 29 H ABG O2 Saturation 90 L ABG Base Excess 3 Quality Measures Quality Measures none Advance care planning discussed with:: patient Assessment & Plan Assessment Current Active Medications: Generic Name Dose Route Start Last Admin Trade Name Freq PRN Reason Stop Dose Admin Acetaminophen 650 mg 07/13/24 03:40 Acetaminophen 325 Mg Tablet PO 08/12/24 03:39 Q6H PRN Fever >101.5 Acetaminophen 650 mg 07/13/24 03:40 07/13/24 16:20 Acetaminophen 325 Mg Tablet PO 08/12/24 03:39 650 mg Q6H PRN Administration PAIN SCALE 1-3 (mild Acetylcysteine 4 ml 07/13/24 06:18 Acetylcysteine Rt Mary 10% 4 Ml Nebu INH 08/12/24 06:59 Q4HRRT PRN SPUTUM CLEARANCE Albuterol/Ipratropium 3 ml 07/13/24 07:00 07/14/24 10:15 Albuterol/Ipratropium (Duoneb) Rt Mary 3 Ml Nebu INH 08/12/24 06:59 3 ml Q4HRRT SENIA Administration Azithromycin 500 mg 07/15/24 09:00 Azithromycin 250 Mg Tablet PO 07/20/24 03:46 QDAY SENIA Heparin Sodium (Porcine) 5,000 unit 07/13/24 09:00 07/14/24 08:49 Heparin Sod Inj 5000 Unit/Ml Vial SC 07/27/24 08:59 5,000 unit Q12HR SENIA Administration Ceftriaxone Sodium 1,000 mg/ 50 mls @ 100 mls/hr 07/13/24 21:00 07/13/24 21:11 Sodium Chloride IV 07/20/24 20:59 100 mls/hr QPM SENIA Administration Azithromycin 500 mg/ Sodium 250 mls @ 250 mls/hr 07/13/24 03:47 07/14/24 10:56 Chloride IV 07/15/24 06:00 Not Given QDAY SENIA Lisinopril 40 mg 07/13/24 09:00 07/14/24 08:48 Lisinopril 20 Mg Tablet PO 08/12/24 08:59 40 mg QDAY SENIA Administration Ondansetron HCl 4 mg 07/13/24 03:40 Ondansetron Inj 2 Mg/Ml Inj 2 Ml IV 08/12/24 03:39 Q6H PRN NAUSEA OR VOMITING Protocol Pantoprazole Sodium 40 mg 07/13/24 13:15 07/14/24 08:48 Pantoprazole 40 Mg Tablet PO 08/12/24 13:14 40 mg QDAY SENIA Administration Prednisone 40 mg 07/15/24 09:00 Prednisone 20 Mg Tablet PO 07/29/24 08:59 QDAY SENIA Sennosides 1 tab 07/13/24 09:00 07/14/24 08:48 Senna Tablet PO 08/12/24 08:59 1 tab QDAY SENIA Administration Protocol Tamsulosin HCl 0.4 mg 07/13/24 09:00 07/14/24 08:48 Tamsulosin Hcl 0.4 Mg Capsule PO 08/12/24 08:59 0.4 mg QDAY SENIA Administration Plan 83-year-old male with past medical history of COPD, BPH, hypertension was admitted to the hospital on 07/13/2024 due to acute hypoxic and hypercapnic respiratory failure likely secondary to COPD exacerbation in the setting of community-acquired pneumonia. #Acute hypoxic and hypercapnic respiratory failure #COPD exacerbation #Community-acquired pneumonia ? Patient initially came in with complaints of shortness of breath and cough for 1 week ? Initial influenza COVID, cocci, and RSV were all negative. ? Initial ABG showed hypoxia with some hypercapnia ?Chest x-ray that show left upper lobe pneumonia ? Patient has a history of smoking, but quit 10 years ago Plan: ? Continue azithromycin and Rocephin [07/13/2024?] ? Solu-Medrol 40 mg IV [07/13/2024?07/14/2024] -Switched Solu-Medrol to prednisone 40mg qday for 14 days, [07/14/2024-07/28/2024] ?Sputum cultures ?Continue DuoNebs scheduled every 4 ? Will continue to monitor #Concern for congestive heart failure ? Patient initially came in with shortness of breath and there was some trace bilateral lower extremity edema ?BNP was less than 20 ?Most likely no heart failure, but will follow-up on echo ordered Plan: ? Echo pending ? Strict LIDIA's ? Daily weights ? Fluid restrictions ? Low-sodium diet ? Continue to monitor #Hx of hypertension #Hx of BPH ? Continue tamsulosin and lisinopril Disposition: Patient admitted for COPD exacerbation, pending echo read and continue IV abx and prednisone 40mg still has expiratory wheezing Diet: Cardiac GI prophylaxis: protonix DVT prophylaxis: SCDs Code: Full Case disclosed with Attending Dr. Mathis and My senior Dr. Rebollar PGY3. Yousif Menjivar PGY1 Attending Provider Attestation/Addendum I have discussed and was present for the essential components of the history, physical examination, diagnosis, and treatment plan with the resident. I agree with the patient's care as documented by the resident and amended herein by me. Fabio Mathis DO. Patient seen and evaluated this AM. Vital signs stable, no acute events overnight, patient remains on oxime mask at 96% SpO2 this morning. Labs largely unremarkable, will continue to titrate down O2 will continue ceftriaxone azithromycin at this time as well as steroids for COPD exacerbation in the setting of pneumonia. Echo is also pending Although this document has been carefully reviewed, there may still be some phonetic and other typographical errors. These errors are purely grammatical due to imperfections in the software program and should not be construed in any way to compromise the substance of the patient's medical care during this visit.
[2024-07-14 13:01] LABS: Cocci Serology, IgG Negative (Negative)
--- NOTE | 2024-07-14 14:42 | PC.SS ---
SS follow up note; Weaning down on 02.
[2024-07-14] MEDS: cefTRIAXone 1,000 MG in SODIUM CHLORIDE 0.9% (P) 50 ML 100 MG IV (20:58)
[2024-07-15] VITALS (11 sets, daily range): BP systolic 117–137; BP diastolic 77–92; PULSE 70–85; RESP 17–24; TEMP 37.1–37.4; O2SAT 91–98
[2024-07-15] MEDS: ALBUTEROL/IPRATROPIUM (Duoneb) RT SOL 3 ML NEBU INH ×3 (03:07→10:47)
[2024-07-15 05:48] LABS: Basophils % (Auto) 0 % (0-2.5); Eosinophils % (Auto) 0 % (0-10); Hematocrit 41.3 % (41.0-53.0); Hemoglobin 14.2 g/dL (13.5-16.0); Immature Granulocytes % (Auto) 0 % (0-0); Immature Granulocytes Auto 0.03 Thou/mm3 (0.00-0.00); Lymphocytes # (Auto) 1.3 Thou/mm3 (1.0-4.8); Lymphocytes % (Auto) 15 % (10-50); Mean Corpuscular HGB Conc 34.4 g/dl (31.0-37.0); Mean Corpuscular Volume 87 fL (80-100); Monocytes # (Auto) 0.8 Thou/mm3 (0.0-0.8); Monocytes % (Auto) 9 % (0-12); Neutrophils # (Auto) 6.2 Thou/mm3 (1.8-7.7); Neutrophils % (Auto) 75 % (37-80); Nucleated Red Blood Cell % 0 /100 WBC (0); Platelet Count 161 Thou/mm3 (140-440); RDW Standard Deviation 39.6 fL (35.1-43.9); Red Blood Count 4.73 Miln/mm3 (4.50-5.90); White Blood Count 8.2 Thou/mm3 (3.8-10.6)
[2024-07-15 06:29] LABS: Alanine Aminotransferase 38 U/L (10-49); Albumin, Serum 3.7 gm/dL (3.4-4.8); Albumin/Globulin Ratio 1.7 (1.2-2.2); Alkaline Phosphatase 85 U/L (46-116); Anion Gap 6 (7-16); Aspartate Amino Transferase 25 U/L (0-34); BUN/Creatinine Ratio 25 Ratio (12-20); Bilirubin,Total 0.4 mg/dL (0.3-1.2); Blood Urea Nitrogen 25 mg/dL (9-23); Calcium 9.1 mg/dL (8.3-10.6); Calcium (Corrected) 9.3 mg/dL (8.5-10.1); Carbon Dioxide 30.2 mMol/L (20.0-31.0); Chloride 106 mMol/L (98-107); Estimated Creatinine Clearance 69.6 mL/min (>60); Globulin 2.2 gm/dL (2.3-3.5); Glucose 94 mg/dL (74-106); Magnesium 2.2 mg/dL (1.6-2.6); Osmolality,Calculated 287 (275-295); Phosphorous 2.2 mg/dL (2.4-5.1); Potassium 4.2 mMol/L (3.4-5.1); Sodium 142 mMol/L (136-145); Total Protein 5.9 gm/dL (5.7-8.2); eGFR > 60 See Note
[2024-07-15] MEDS: HEPARIN SOD INJ 5000 UNIT/ML VIAL SC (09:54)
[2024-07-15] MEDS: AZITHROMYCIN 250 MG TABLET 500 MG PO (09:55)
[2024-07-15] MEDS: PANTOPRAZOLE 40 MG TABLET PO (09:55)
[2024-07-15] MEDS: SENNA TABLET 1 TAB PO (09:55)
[2024-07-15] MEDS: Lisinopril 20 MG TABLET 40 MG PO (09:56)
[2024-07-15] MEDS: predniSONE 20 MG TABLET 40 MG PO (09:56)
[2024-07-15] MEDS: TAMSULOSIN HCL 0.4 MG CAPSULE PO (09:56)
--- NOTE | 2024-07-15 14:00 | ESDS_ITS ---
Planned Discharge Date 07/15/24 DS: Providers Provider Date of admission: 07/13/24 03:39 Primary care physician: BRENDAN Villa Admitting Provider: Cong Jeffers MD Attending Provider on Admission: Cricket Mathis DO Attending Provider on DC: Zhanna Kiran MD Discharging Provider: Zhanna Kiran MD DS: Diagnosis Problem List Completed Was Problem List Reviewed/Reconciled?: Yes Hospital Course Hospital Course Hospital course: Reason for hospitalization: COPD and CAP Matt Ellis is 73 yr male with PMH of ?COPD/asthma, hypertension and BPH who presented to [facility] ED on 07/13/24 due to SOB. He was admitted for acute hypoxic and hypercapnic respiratory failure in setting of COPD exacerbation and pneumonia. SOB and cough worsened with wheezing since a week ago. Influenza, COVID, RSV were negative. Initial ABG showed hypoxia with hypercapnia. CXR showed left upper lobe penumonia. Patient was started on oxygen via NC, azithromycin and Rocephin, steroid 40 mg daily. His oxygen requirements improved with treatment. Sputum cultures were negative. Patient is now in stable condition and ready for discharge. Recommendations were given as below. Discharge Recommendations: Resume home medications. Continue azithromycin 500 mg daily for 3 more days. Continue Augmentin 875 mg twice a day for 3 more days. Finish Medrolpak. Use home oxygen as needed. Check oxygen saturation levels with pulse ox device. Follow up with PCP within 1 week. Return to ED if symptoms return or worsen. Reanudar la medicaci?n casera. Contin?e con azitromicina 500 mg al d?a burton 3 d?as m?s. Contin?e Augmentin 875 mg dos veces al d?a burton 3 d?as m?s. Terminar Medrolpak. Utilice ox?dav domiciliario seg?n sea necesario. Verifique los niveles de saturaci?n de ox?dav con un dispositivo de pulsoox. Agus un seguimiento con el PCP dentro de 1 semana. Regrese al servicio de urgencias si los s?ntomas regresan o empeoran. Hospital Diagnoses: #Acute hypoxic and hypercapnic respiratory failure #COPD exacerbation #Community-acquired pneumonia #Concern for congestive heart failure #Hx of hypertension #Hx of BPH The patient's management plan was discussed with my attending physician Dr. Mathis. Zhanna Kiran MD, PGY-1 Time Spent with Patient Time attestation: Total time spent providing and/or coordinating discharge services: Time spent: Greater than 30 minutes Exam Vital Signs Temp Pulse Resp BP Pulse Ox O2 Del Method O2 Flow Rate 98.7 F 82 17 126/84 92 L Nasal Cannula 2 07/15/24 12:00 07/15/24 12:00 07/15/24 12:00 07/15/24 12:00 07/15/24 12:00 07/15/24 12:00 07/15/24 12:00 FiO2 6 07/14/24 16:00 Narrative Exam General: A/O x3, no acute distress, eager to leave Eyes: PERRL, EOMI. Anicteric, vision grossly intact. Ears: No ear pain, no ear discharge, Hearing grossly intact. Nose: No nasal discharge. Mouth/Throat: Dry mucous membranes, no redness, no lesions. Neck: Neck supple, non-tender, no cervical lymphadenopathy. Lungs: improved wheezing, No accessory muscle use. Cardio: Normal S1/S2, regular rhythm, no murmurs, no JVD Abdomen: Soft, but distended, non-tender, no palpable masses, peristalsis present, no guarding or rebound. Extremities: Symmetrical, no significant deformities, no peripheral edema , non-tender, peripheral pulses presents. Skin: No rashes, no lesions, warm to touch. Neuro: No focal neurological deficits. motor and sensory intact Discharge Plan Plan Patient Disposition: HOME (Self Care) Patient condition on transfer: Stable Prescriptions/Referrals Prescriptions/Med Rec: New azithromycin 500 mg tablet 500 mg PO QDAY 3 Days Qty: 3 0RF amoxicillin-pot clavulanate 875-125 mg tablet 1 tab PO BID 3 Days Qty: 6 0RF methylprednisolone [Medrol (Jamin)] 4 mg tablets,dose pack 4 mg PO QDAY Qty: 21 0RF Continued lisinopril 40 mg tablet 40 mg PO QDAY tamsulosin 0.4 mg capsule 0.4 mg PO QDAY Patient Comments: TOME 1 C PSULA POR V A ORAL AL ACOSTARSE hydrocortisone 2.5 % cream with perineal applicator 1 applic [place] QDAY Patient Comments: APLIQUE 1 GRAM RECTALMENTE DIARIO terbinafine HCl 250 mg tablet 250 mg PO QDAY Patient Comments: TOME 1 TABLETA POR V A ORAL TODOS LOS D acetaminophen-codeine 300-30 mg tablet 2 tab PO TID MDD 6 PRN (Reason: pain) Qty: 20 0RF albuterol sulfate 90 mcg/actuation HFA aerosol inhaler 2 inh inhalation QID PRN (Reason: shortness of breath or wheezing) Qty: 8.5 0RF No Action mesalamine 1,000 mg suppository 1,000 mg [place] QHSPRN PRN (Reason: Pain) Patient Comments: INSERTE 1 SUPPOSITORIO RECTALMENTE TODOS LOS D AL ACOSTARSE Referrals: Deanne Garzon FNP [Primary Care Provider] - Patient/Caregiver Discharge Instructions Other Discharge Activity Instructions:: Resume home medications. Continue azithromycin 500 mg daily for 3 more days. Continue Augmentin 875 mg twice a day for 3 more days. Finish Medrolpak. Use home oxygen as needed. Check oxygen saturation levels with pulse ox device. Follow up with PCP within 1 week. Return to ED if symptoms return or worsen. Reanudar la medicaci?n casera. Contin?e con azitromicina 500 mg al d?a burton 3 d?as m?s. Contin?e Augmentin 875 mg dos veces al d?a burton 3 d?as m?s. Terminar Medrolpak. Utilice ox?dav domiciliario seg?n sea necesario. Verifique los niveles de saturaci?n de ox?dav con un dispositivo de pulsoox. Agus un seguimiento con el PCP dentro de 1 semana. Regrese al servicio de urgencias si los s?ntomas regresan o empeoran. Education Materials: Asthma and COPD, Preventing Pneumonia, Treating Pneumonia Print Language: Albanian Stand Alone Forms: Anjana Award Info., Patient Portal Info Letter Discharge Order Discharge Orders: Discharge (Routine); Ordered 07/15/24 Ordered By: Zhanna Kiran Quality Discharge Quality Measures VTE prophylaxis Attestestation Attestation I have discussed and was present for the essential components of the discharge history, physical examination, diagnosis, and discharge treatment plan with the resident. I agree with the patient's discharge care as documented by the resident and amended herein by me. Fabio Mathis DO. The patient understood all discharge instructions, all questions were answered satisfactorily. The patient was instructed to return to the Emergency Department is symptoms worsened or persisted. Patient was stable, afebrile and tolerating p.o. intake at time of discharge. Although this document has been carefully reviewed, there may still be some phonetic and other typographical errors. These errors are purely grammatical due to imperfections in the software program and should not be construed in any way to compromise the substance of the patient's medical care during this visit.
--- NOTE | 2024-07-15 14:28 | PC.SS ---
SS follow up note; SS was informed during rounding that patient will need 02 testing. SS contacted [employer] and she informed SS she would perform 02 test.
--- NOTE | 2024-07-15 14:31 | PC.SS ---
OXYGEN Pt is discharged in a chronic stable state and has been treated optimally and has other respiratory needs. Oxygen has been ordered due to Covid and acute hypoxic respiratory failure. To secure a safe discharge for the pt home oxygen is needed. The pt is mobile within the home and will need continuous, portable O2 via nasal cannula. Pt is discharged in a chronic stable state and has been treated optimally and has other respiratory needs.? Oxygen has been ordered due to Covid and acute hypoxic respiratory failure.
--- NOTE | 2024-07-15 14:35 | PC.NURSE ---
PT FOUND TO BE STANDING IN ROOM WITHOUT OXYGEN, SATS 87% ON ROOM AIR, PT STATED HAD JUST REMOVED OXYGEN, PLACED BACK ON OXYGEN
--- NOTE | 2024-07-15 15:04 | PC.SS ---
SS sent 02 referral through [employer] platform. [facility] reported they will deliver 02 at bedside within 1-2 hours.
== END 2024-07-15 18:03 | disposition home or self-care (01) | DRG 193 ==
LOC: SERX 04:32 → SERHOLD 04:37 → S3SX 17:56
PROVIDERS: Admitting Provider Internal Medicine; Emergency Provider Emergency Medicine; PCP Registered Nurse Community Health; Visit Provider Student in an Organized Health Care Education/Training Program
DX: J18.9 Pneumonia, unspecified organism (principal); J96.01 Acute respiratory failure with hypoxia; J96.02 Acute respiratory failure with hypercapnia; J44.1 Chronic obstructive pulmonary disease with (acute) exacerbation; J44.0 Chronic obstructive pulmonary disease with (acute) lower respiratory infection; I11.0 Hypertensive heart disease with heart failure; I50.9 Heart failure, unspecified; N40.0 Benign prostatic hyperplasia without lower urinary tract symptoms; K59.00 Constipation, unspecified; Z87.891 Personal history of nicotine dependence; Z79.899 Other long term (current) drug therapy
CPT/HCPCS: 36415; 36600; 71045; 80053; 80061; 81001; 82803; 83735; 83880; 84100; 84443; 84484; 85025; 85379; 85610; 85730; 86331; 86635; 87205; 87400; 87634; 87811; 93005; 93225; 93306; 93970; 94640; 96365; 96368; 96372; 96375; 96376; 99285; A9270; J0456; J0696; J1643; J2919; J7050; J7512

== ENCOUNTER 2024-07-17 02:21 | Emergency (ER) | payer MEDICARE, MEDICAID, SELFPAY ==
[2024-07-17 02:21] VITALS: BMI 29.7
[2024-07-17 02:38] VITALS: BP 148/81; PULSE 85; RESP 19; TEMP 36.8; O2SAT 94
--- NOTE | 2024-07-17 02:51 | EDNOTE_ITS ---
Upper Respiratory Inf. RME/HPI General Chief Complaint: Flu Like Symptoms Stated Complaint: COUGH, ABD PAIN Time Seen by Provider: 07/17/24 02:23 Arrival date/time: 07/17/24 02:21 74-year-old male with a history of COPD discharged from the hospital 1 day ago for acute respiratory failure and pneumonia presents with complaints of persistent coughing. Patient was discharged home with antibiotics and on oxygen. Patient states that he is breathing fine but he is coughing so much that his stomach hurts. Patient states that he was not prescribed cough medicine so he is here for cough medicine he denies fever or chills chest pain nausea or vomiting. He also reports no shortness of breath with the aid of charu al cannula and oxygen Limitations: no limitations Related Data Home Medications ?Medication ?Instructions ?Recorded ?Confirmed lisinopril 40 mg tablet 40 mg PO QDAY 04/06/2307/13 tamsulosin 0.4 mg capsule 0.4 mg PO QDAY 03/28/2407/02 hydrocortisone 2.5 % topical cream 1 applic [place] QDAY 04/14/24 with perineal applicator mesalamine 1,000 mg rectal 1,000 mg TN QHSPRN PRN Pain 03/29/24 04/14/24 suppository terbinafine HCl 250 mg tablet 250 mg PO QDAY 03/29/24 04/14/24 Previous Rx's ?Medication ?Instructions ?Recorded acetaminophen 300 mg-codeine 30 mg 2 tab PO TID PRN pa in #20 tabs 04/24/24 tablet albuterol sulfate 90 mcg/actuation 2 inh inhalation QI D PRN shortness 04/24/24 aerosol inhaler of breath or wheezing #8.5 g barron amoxicillin 875 mg-potassium 1 tab PO BID 3 days #6 ta bs 07/15/24 clavulanate 125 mg tablet azithromycin 500 mg tablet 500 mg PO QDAY 3 days #3 ta bs 07/15/24 methylprednisolone 4 mg tablets in 4 mg PO QDAY #21 ta bs 07/15/24 a dose pack (Medrol (Jamin)) benzonatate 200 mg capsule 200 mg PO TID PRN cough #30 caps 07/17/24 Allergies Allergy/AdvReac Type Severity Reaction Status Date / Time No Known Allergies Allergy Verified 07/17/24 02:25 Review of Systems Constitutional Constitutional: Denies chills and Denies fever(s) ENT Ears, Nose, Mouth, and Throat: Denies sinus pressure, Denies sore throat and Denies tongue swelling Cardiovascular Cardiovascular: Denies chest pain, Reports dyspnea and Denies syncope Respiratory Respiratory: Reports cough and Reports dyspnea Gastrointestinal Gastrointestinal: Denies nausea and Denies vomiting Integumentary/Breasts Skin/Breast: Denies unusual bruising and Denies wounds Neurologic Neurologic: Denies seizure-like activity and Denies syncope Allergic/Immunologic Allergic/Immunologic: Denies tongue swelling ED Exam General Limitations: Present no limitations General appearance: Present alert and in no apparent distress Neck Neck exam: Present normal inspection, full ROM and trachea midline Chest Chest inspection: Present normal inspection and symmetric chest wall rise Respiratory Respiratory exam: Absent normal lung sounds bilaterally (Coarse breath sounds) or respiratory distress Cardiovascular Cardiovascular exam: Present regular rate, normal rhythm and normal heart sounds Abdominal Exam Abdominal exam: Present soft and normal bowel sounds Extremities Exam Extremities exam: Present normal inspection and full ROM Back Exam Back exam: Present normal inspection and full ROM Neurological Exam Neurological exam: Present alert, oriented X3 and CN II-XII intact Psychiatric Psychiatric exam: Present normal affect and normal mood Skin Skin exam: Present warm, dry, intact and normal color Course Course Course Narrative: 74-year-old male being treated for pneumonia presents with complaint of persistent coughing. Patient will be prescribed Tessalon Perles and advised to follow-up with his primary care provider as needed he is stable nontoxic- appearing with stable vital signs on nasal cannula 2 L of oxygen. He will be discharged with referral to PCP Quality Measures none Vital Signs Vital signs: Vital Signs Temperature 98.3 F 07/17/24 02:38 Pulse Rate 85 07/17/24 02:38 Respiratory Rate 19 07/17/24 02:38 Blood Pressure 148/81 H 07/17/24 02:38 Pulse Oximetry (%) 94 L 07/17/24 02:38 Oxygen Delivery Method Nasal Cannula 07/17/24 02:38 Oxygen Flow Rate 3 07/17/24 02:38 Upper Respiratory Infection Patient data External records reviewed:: None Clinical information provided by:: patient Social determinants that could affect healthcare access:: none Patient has the following chronic illnesses:: COPD How is presenting disease/condition affected by chronic disease/condition?: caused by Evaluation data The following diagnostics were reviewed and interpreted by me:: other (specify) (none) Lab and/or radiology exams considered but not ordered:: none Interpretation Summary: n/a Medications / Prescriptions Medications or Prescriptions considered but not ordered:: none Medication administrations:: Avery Winn Consultations Consultation(s) initiated? (list below): No Diagnosis Upper Respiratory Differential Diagnosis: upper respiratory infection, bronchitis, influenza and other (Pneumonia, COPD) Most likely diagnosis given after review of the tests above:: Pneumonia Admission Indicated Admission indicated?: not indicated Admission Request Was there a request for admission?: No Disposition Plan Disposition Plan: Discharge Discharge Attestation Discharge Attestation: The patient and all family members were given an opportunity to ask questions and understood the discharge instructions. Discharge instructions specifically effects, indications for sooner follow up or return to the emergency department, and the expected course of current diagnosis. Patient condition: Stable Discharge Plan Plan Patient Disposition: HOME (Self Care) Prescriptions/Referrals Prescriptions/Med Rec: New benzonatate 200 mg capsule 200 mg PO TID PRN (Reason: cough) Qty: 30 0RF No Action lisinopril 40 mg tablet 40 mg PO QDAY tamsulosin 0.4 mg capsule 0.4 mg PO QDAY Patient Comments: TOME 1 C PSULA POR V A ORAL AL ACOSTARSE mesalamine 1,000 mg suppository 1,000 mg [place] QHSPRN PRN (Reason: Pain) Patient Comments: INSERTE 1 SUPPOSITORIO RECTALMENTE TODOS LOS D AL ACOSTARSE hydrocortisone 2.5 % cream with perineal applicator 1 applic [place] QDAY Patient Comments: APLIQUE 1 GRAM RECTALMENTE DIARIO terbinafine HCl 250 mg tablet 250 mg PO QDAY Patient Comments: TOME 1 TABLETA POR V A ORAL TODOS LOS D acetaminophen-codeine 300-30 mg tablet 2 tab PO TID MDD 6 PRN (Reason: pain) Qty: 20 0RF albuterol sulfate 90 mcg/actuation HFA aerosol inhaler 2 inh inhalation QID PRN (Reason: shortness of breath or wheezing) Qty: 8.5 0RF azithromycin 500 mg tablet 500 mg PO QDAY 3 Days Qty: 3 0RF amoxicillin-pot clavulanate 875-125 mg tablet 1 tab PO BID 3 Days Qty: 6 0RF methylprednisolone [Medrol (Jamin)] 4 mg tablets,dose pack 4 mg PO QDAY Qty: 21 0RF Problem List Clinical Impression: Pneumonia Patient/Caregiver Discharge Instructions Discharge Activity: activity as tolerated Education Materials: ED Pneumonia (Adult) Additional Instructions: Take medication as directed hydrate well follow with your primary care provider in 24 to 48 hours. Return to the emergency department if symptoms should worsen Print Language: South Sudanese Stand Alone Forms: Anjana Award Info., Patient Portal Info Letter
[2024-07-17] MEDS: BENZONATATE 100 MG CAPSULE 200 MG PO (03:57)
--- NOTE | 2024-07-18 08:33 | CHAP ---
Patient was visited by the Spiritual Care Volunteer who prayed for them. (Volunteer was in the hospital from 10:26-11:40)
--- NOTE | 2024-07-18 08:36 | CHAP ---
Patient was visited by the Spiritual Care Volunteer who prayed for them. (Volunteer was in the hospital from 10:26-11:40)
--- NOTE | 2024-07-18 08:37 | CHAP ---
Patient was visited by the Spiritual Care Volunteer who prayed for them. (Volunteer was in the hospital from 10:26-11:40)
--- NOTE | 2024-07-18 08:39 | CHAP ---
Patient was visited by the Spiritual Care Volunteer who prayed for them. (Volunteer was in the hospital from 10:26-11:40) Was actually seen on 07-15-24.
--- NOTE | 2024-07-18 08:40 | CHAP ---
Patient was visited by the Spiritual Care Volunteer who prayed for them. (Volunteer was in the hospital from 10:26-11:40)
--- NOTE | 2024-07-18 08:51 | CHAP ---
Patient was visited by the Spiritual Care Volunteer on 07/15 who prayed for them. (Volunteer was in the hospital from 10:26-11:40 on 07/15)
== END 2024-07-17 03:58 | disposition home or self-care (01) ==
LOC: SERX 03:07
PROVIDERS: Emergency Provider Emergency Medicine; PCP Registered Nurse Community Health
DX: J18.9 Pneumonia, unspecified organism (principal)
CPT/HCPCS: 99282; A9270

== ENCOUNTER → 2024-11-17 | Outpatient (CLI) | payer MEDICARE, MEDICAID, SELFPAY ==
[2024-11-17 17:56] LABS: Prostate Specific Antigen < 0.10 ng/mL (0-4.00)
== END | disposition home or self-care (01) ==
PROVIDERS: PCP Registered Nurse Community Health; Referring Provider Urology; Visit Provider Urology
DX: C61 Malignant neoplasm of prostate (principal)
CPT/HCPCS: 36415; 84153

== ENCOUNTER → 2024-11-17 | Outpatient (BNVA) | payer MEDICARE, MEDICAID, SELFPAY | END | disposition home or self-care (01) | PROVIDERS: PCP Registered Nurse Community Health; Referring Provider Registered Nurse Community Health; Visit Provider Urology | DX: C61 Malignant neoplasm of prostate (principal); R32 Unspecified urinary incontinence; N52.9 Male erectile dysfunction, unspecified; I10 Essential (primary) hypertension; E66.01 Morbid (severe) obesity due to excess calories; Z68.34 Body mass index [BMI] 34.0-34.9, adult; Z87.891 Personal history of nicotine dependence | CPT/HCPCS: 81003; 99212; 99213; G0463 ==

== ENCOUNTER 2024-12-04 16:35 | Emergency (ER) | payer MEDICARE, MEDICAID, SELFPAY ==
[2024-12-04 16:43] VITALS: BP 166/80; PULSE 71; RESP 20; TEMP 36.7; O2SAT 91
--- NOTE | 2024-12-04 17:05 | XR_ITS ---
Examination: AP chest single view Technique : AP portable semiupright chest single view Date and time: December 04, 2024, 1951 hours Comparison July 13, 2024 INDICATIONS: Shortness of breath chest pain beginning 2 days ago FINDINGS: Moderate enlargement left ventricle. Significant vascular congestion. No lobar pneumonia The osseous structures are intact IMPRESSION: Mild heart failure pattern
--- NOTE | 2024-12-04 17:05 | EKG_ITS ---
[facility] Test Date: 2024-12-04 Pat Name: MARÍA ELENA MCCARTHY Department: Room: - Gender: Male Charge Entry Clerk: : 1950 Requested By: Em Martin Order Number: [id number] Reading MD: Em Martin Measurements Intervals [place] Rate: 64 P: 43 HI: 204 QRS: -22 QRSD: 99 T: 9 QT: 381 QTc: 395 Interpretive Statements SINUS RHYTHM POSSIBLE RIGHT VENTRICULAR CONDUCTION DELAY [RSR (QR) IN V1/V2] INFERIOR MYOCARDIAL INFARCTION , PROBABLY OLD [40+ ms Q WAVE AND/OR ST/T ABNORMALITY IN II/aVF] Compared to ECG 07/13/2024 02:08:59 Incomplete right bundle-branch block no longer present Myocardial infarct finding still present /store/S0/[id number]
--- NOTE | 2024-12-04 17:07 | PD.EDWEAK ---
ED Weakness RME/HPI General Chief complaint: Weakness Stated complaint: WEAK, HEADACHE, FAINT Time Seen by Provider: 12/04/24 16:59 Source: patient and family Arrival date/time: 12/04/24 16:35 Mode of arrival: ambulatory Limitations: no limitations RME / HPI RME / HPI Narrative: 74-year-old male who is here today with his [id number]. He and his daughter are somewhat of poor historians. He is here today with generalized weakness, shortness of breath, and mild cough that started this morning. It is unclear if the patient has a history of COPD or asthma. He apparently has supplemental oxygen at home but does not use this. He does have an inhaler additionally. Patient has a history of hypertension and BPH. He denies any fevers. Has no chest pain. Has no abdominal pain, nausea, vomiting he has no urinary complaints. He denies any lower leg edema. He and his daughter state that he was seen here earlier this year for similar symptoms. He has no other acute complaints Related Data Home Medications ?Medication ?Instructions ?Recorded ?Confirmed lisinopril 40 mg tablet 40 mg PO QDAY 04/06/23 07/13/24 hydrocortisone 2.5 % topical cream 1 applic AL QDAY 03/29/24 04/14/24 with perineal applicator mesalamine 1,000 mg rectal 1,000 mg AL QHSPRN PRN Pain 03/29/24 04/14/24 suppository terbinafine HCl 250 mg tablet 250 mg PO QDAY 03/29/24 04/14/24 lisinopril 40 mg tablet 40 mg PO QDAY 11/17/24 11/17/24 Previous Rx's ?Medication ?Instructions ?Recorded acetaminophen 300 mg-codeine 30 mg 2 tab PO TID PRN pain #20 tabs 04/24/24 tablet albuterol sulfate 90 mcg/actuation 2 inh inhalation QID PRN shortness 04/24/24 aerosol inhaler of breath or wheezing #8.5 grams methylprednisolone 4 mg tablets in 4 mg PO QDAY #21 tabs 07/15/24 a dose pack (Medrol (Jamin)) benzonatate 200 mg capsule 200 mg PO TID PRN cough #30 caps 07/17/24 azithromycin 250 mg tablet 250 mg PO QDAY 4 days #4 tabs 12/04/24 Allergies Allergy/AdvReac Type Severity Reaction Status Date / Time No Known Allergies Allergy Verified 12/04/24 16:37 Review of Systems Review of Systems Systems Reviewed: All systems reviewed, normal except as documented ED Exam General Limitations: Present no limitations General appearance: Present alert and in no apparent distress Head Head exam: Present atraumatic Eye Eye exam: Present normal appearance, PERRL and EOMI ENT ENT exam: Present normal exam, normal oropharynx and mucous membranes moist Neck Neck exam: Present normal inspection, full ROM and trachea midline Chest Chest inspection: Present normal inspection and symmetric chest wall rise Respiratory Respiratory exam: Present other (Mild rhonchi noted in the right lung field); Absent respiratory distress Cardiovascular Cardiovascular exam: Present regular rate, normal rhythm and normal heart sounds Abdominal Exam Abdominal exam: Present soft and normal bowel sounds Extremities Exam Extremities exam: Present normal inspection and full ROM Back Exam Back exam: Present normal inspection and full ROM Neurological Exam Neurological exam: Present alert, oriented X3 and CN II-XII intact Psychiatric Psychiatric exam: Present normal affect and normal mood Skin Skin exam: Present warm, dry, intact and normal color Course Quality Measures none Orders Category Date Time Status EKG (ED ONLY) *Do not use* NOW Care 12/04/24 17:05 Completed EKG (ED Only) Stat Exams 12/04/24 17:05 Draft XR chest 1V Stat Exams 12/04/24 17:05 Completed BNP [B-Type Natriuretic Peptide] Stat Lab 12/04/24 17:20 Completed CBC Stat Lab 12/04/24 17:20 Completed CMP [Comprehensive Metabolic Panel] Stat Lab 12/04/24 17:20 Completed Troponin I Stat Lab 12/04/24 17:20 Completed UA, C/S IF [Urinalysis, C/S if Indicated] Stat Lab 12/04/24 18:50 Completed Azithromycin Po [Zithromax PO] Med 12/04/24 18:31 Discontinued 500 mg PO X1 ONE Vital Signs Vital signs: Vital Signs Temperature 98.1 F 12/04/24 16:43 Pulse Rate 71 12/04/24 16:43 Respiratory Rate 20 12/04/24 16:43 Blood Pressure 166/80 H 12/04/24 16:43 Pulse Oximetry (%) 91 L 12/04/24 16:43 Oxygen Delivery Method Room Air 12/04/24 16:43 Weakness MDM Narrative MDM Narrative:: 74-year-old male who is here today with his [id number]. He and his daughter are somewhat of poor historians. He is here today with generalized weakness, shortness of breath, and mild cough that started this morning. It is unclear if the patient has a history of COPD or asthma. He apparently has supplemental oxygen at home but does not use this. He does have an inhaler additionally. Patient has a history of hypertension and BPH. He denies any fevers. Has no chest pain. Has no abdominal pain, nausea, vomiting he has no urinary complaints. He denies any lower leg edema. He and his daughter state that he was seen here earlier this year for similar symptoms. He has no other acute complaints When patient arrived his vital signs are stable. He is on 2 L of supplemental oxygen by nasal cannula that was placed by EMS. His work appears essentially unremarkable. He did have rhonchi noted in his right lungs. Dose of azithromycin was provided. Suspect patient does have COPD and likely needs continued oxygen therapy. We will continue azithromycin. We had a long discussion with the patient and his daughter. They will use continuous oxygen. Follow-up with your primary clinic this week. Return to the emergency room at anytime for any worsening or emergent changes. Patient data External records reviewed:: EMS form Clinical information provided by:: patient Social determinants that could affect healthcare access:: none Patient has the following chronic illnesses:: Reactive lung disease, hypertension How is presenting disease/condition affected by chronic disease/condition?: exacerbated by Evaluation data The following diagnostics were reviewed and interpreted by me:: lab results, radiology exam(s) (No mass or infiltrate, poor inspiratory effort) and EKG tracing(s) (Normal sinus rhythm at 64 bpm there are no ST changes. T wave inversion at V1 that is noted in EKG dated 07/13/2024.) Lab and/or radiology exams considered but not ordered:: No leukocytosis or significant anemia. Metabolic panel reveals no significant metabolic derangement. UA is unremarkable Interpretation Summary: Negative workup Medications / Prescriptions Medications or Prescriptions considered but not ordered:: Magnesium Medication administrations:: Medication Administration History Discontinued Medications Azithromycin (Azithromycin 250 Mg Tablet) 500 mg PO X1 ONE Stop: 12/04/24 18:32 Last Admin: 12/04/24 18:49 Dose: 500 mg Documented By: See above Consultations Consultation(s) initiated? (list below): No Diagnosis Weakness Differential Diagnosis: anemia, hypoglycemia, sepsis and dehydration Most likely diagnosis given after review of the tests above:: Reactive airway disease Admission Indicated Admission indicated?: not indicated Admission Request Was there a request for admission?: No Disposition Plan Disposition Plan: Discharge Discharge Attestation Discharge Attestation: The patient and all family members were given an opportunity to ask questions and understood the discharge instructions. Discharge instructions specifically effects, indications for sooner follow up or return to the emergency department, and the expected course of current diagnosis. Patient condition: Stable Discharge Plan Plan Patient Disposition: HOME (Self Care) Patient condition on transfer: Stable Prescriptions/Referrals Prescriptions/Med Rec: New azithromycin 250 mg tablet 250 mg PO QDAY 4 Days Qty: 4 0RF Rx Instructions: start on day 2 of therapy No Action lisinopril 40 mg tablet 40 mg PO QDAY lisinopril 40 mg tablet 40 mg PO QDAY benzonatate 200 mg capsule 200 mg PO TID PRN (Reason: cough) Qty: 30 0RF mesalamine 1,000 mg suppository 1,000 mg AL QHSPRN PRN (Reason: Pain) Patient Comments: INSERTE 1 SUPPOSITORIO RECTALMENTE TODOS LOS D AL ACOSTARSE hydrocortisone 2.5 % cream with perineal applicator 1 applic AL QDAY Patient Comments: APLIQUE 1 GRAM RECTALMENTE DIARIO terbinafine HCl 250 mg tablet 250 mg PO QDAY Patient Comments: TOME 1 TABLETA POR V A ORAL TODOS LOS D acetaminophen-codeine 300-30 mg tablet 2 tab PO TID MDD 6 PRN (Reason: pain) Qty: 20 0RF albuterol sulfate 90 mcg/actuation HFA aerosol inhaler 2 inh inhalation QID PRN (Reason: shortness of breath or wheezing) Qty: 8.5 0RF methylprednisolone [Medrol (Jamin)] 4 mg tablets,dose pack 4 mg PO QDAY Qty: 21 0RF Referrals: Johnathan Gilbert [Primary Care Provider] - In 1 week Problem List Clinical Impression: Pneumonia, COPD exacerbation Patient/Caregiver Discharge Instructions Education Materials: Asthma and COPD, ED Pneumonia (Adult) Additional Instructions: - Use the provided antibiotics. - Use supplemental oxygen at all times. - Return to the emergency room anytime for any worsening or emergent changes. Print Language: Macanese Stand Alone Forms: Anjana Award Info., Patient Portal Info Letter
[2024-12-04 17:48] LABS: Basophils # (Auto) 0.1 Thou/mm3 (0.0-0.2); Basophils % (Auto) 1 % (0-2.5); Eosinophils # (Auto) 0.2 Thou/mm3 (0.0-0.5); Eosinophils % (Auto) 3 % (0-10); Hematocrit 43.4 % (41.0-53.0); Hemoglobin 15.6 g/dL (13.5-16.0); Immature Granulocytes Auto 0.04 Thou/mm3 (0.00-0.00); Lymphocytes # (Auto) 1.1 Thou/mm3 (1.0-4.8); Lymphocytes % (Auto) 16 % (10-50); Mean Corpuscular HGB Conc 35.9 g/dl (31.0-37.0); Mean Corpuscular Hemoglobin 30.4 pg (25.0-35.0); Mean Corpuscular Volume 85 fL (80-100); Monocytes # (Auto) 0.5 Thou/mm3 (0.0-0.8); Monocytes % (Auto) 8 % (0-12); Neutrophils # (Auto) 4.9 Thou/mm3 (1.8-7.7); Neutrophils % (Auto) 72 % (37-80); Nucleated Red Blood Cell # 0.00 Thou/mm3 (0.00-0.00); Nucleated Red Blood Cell % 0 /100 WBC (0); Platelet Count 160 Thou/mm3 (140-440); RDW Standard Deviation 36.1 fL (35.1-43.9); Red Blood Count 5.13 Miln/mm3 (4.50-5.90); White Blood Count 6.7 Thou/mm3 (3.8-10.6)
--- NOTE | 2024-12-04 17:59 | PC.NURSE ---
PATIENT BROUGHT TO ROOM WITH COMPLAINT OF WEAKNESS, PER FAMILY PATIENT WOKE UP THIS MORNING WITH A HEADACHE AND AN INCREASE IN WEAKNESS, PATIENT HAS HAD NON PRODUCTIVE COUGH FOR A FEW DAYS AND COMPLAINS OF SOB WITH EXERTION. IV ESTABLISHED, EKG COMPLETED. PATIENT WITH CALL LIGHT WITHIN REACH AND FAMILY REMAINS AT BEDSIDE.
[2024-12-04 18:01] LABS: Alanine Aminotransferase 18 U/L (10-49); Albumin, Serum 3.9 gm/dL (3.4-4.8); Albumin/Globulin Ratio 1.8 (1.2-2.2); Alkaline Phosphatase 88 U/L (46-116); Anion Gap 7 (7-16); Aspartate Amino Transferase 17 U/L (0-34); BUN/Creatinine Ratio 12 Ratio (12-20); Bilirubin,Total 1.0 mg/dL (0.3-1.2); Blood Urea Nitrogen 13 mg/dL (9-23); Calcium 8.4 mg/dL (8.3-10.6); Calcium (Corrected) 8.5 mg/dL (8.5-10.1); Carbon Dioxide 26.7 mMol/L (20.0-31.0); Chloride 102 mMol/L (98-107); Creatinine (Component) 1.1 mg/dL (0.6-1.3); Globulin 2.2 gm/dL (2.3-3.5); Glucose 125 mg/dL (74-106); Osmolality,Calculated 273 (275-295); Potassium 4.4 mMol/L (3.4-5.1); Sodium 136 mMol/L (136-145); Total Protein 6.1 gm/dL (5.7-8.2); Troponin I < 0.002 ng/mL (0.0-0.045); eGFR > 60 See Note
[2024-12-04 18:14] LABS: B-Type Natriuretic Peptide < 20 pg/mL (0-100)
[2024-12-04 18:29] VITALS: BP 129/76; PULSE 59; RESP 18; TEMP 36.7; O2SAT 96
[2024-12-04] MEDS: AZITHROMYCIN 250 MG TABLET 500 MG PO (18:49)
[2024-12-04 19:10] LABS: Collection Type, Urine Voided
[2024-12-04 19:16] LABS: Bilirubin,Urine Negative (Negative); Blood,Urine Negative (Negative); Clarity,Urine Clear (Clear/Hazy); Color,Urine Colorless (Lt Yel-Yel); Culture Indicated,Urine Not Indicated; Glucose, Urine Negative (Negative); Ketones,Urine Negative (Negative); Leukocyte Esterase,Urine Negative (Negative); Nitrite,Urine Negative (Negative); PH,Urine 6.5 (5.0-7.0); Protein,Urine Negative (Neg - Trace); RBC,Urine < 1 /hpf (0-3); Specific Gravity,Urine 1.008 (1.001-1.035); Squamous Epithelial Cell,Urine 1 /hpf (0-5); Urobilinogen,Urine Negative mg/dL (0.0-1.0); WBC,Urine < 1 /hpf (0-5)
[2024-12-04 19:26] VITALS: BP 139/83; PULSE 56; RESP 18; TEMP 36.8; O2SAT 96
[2024-12-04 21:15] VITALS: BP 129/79; PULSE 58; RESP 17; TEMP 36.9; O2SAT 96
== END 2024-12-04 22:06 | disposition home or self-care (01) ==
PROVIDERS: Physician Assistant Medical; Emergency Provider Emergency Medicine; PCP Physician Assistant
DX: J18.9 Pneumonia, unspecified organism (principal); J44.1 Chronic obstructive pulmonary disease with (acute) exacerbation; Z99.81 Dependence on supplemental oxygen; I10 Essential (primary) hypertension; N40.0 Benign prostatic hyperplasia without lower urinary tract symptoms; J44.0 Chronic obstructive pulmonary disease with (acute) lower respiratory infection; I25.2 Old myocardial infarction
CPT/HCPCS: 36415; 71045; 80053; 81001; 83880; 84484; 85025; 93005; 99283; A9270

== ENCOUNTER → 2025-01-02 | Outpatient (CLI) | payer MEDICARE, MEDICAID, SELFPAY ==
--- NOTE | 2025-01-02 11:48 | XR_ITS ---
Examination: PA lateral chest 2 views TECHNIQUE: Upright PA lateral chest 2 views Date and time: January 02, 2025 1209 hours INDICATIONS: COPD diagnosis with shortness of breath beginning 3 days ago. FINDINGS: Moderate enlargement left ventricle Reduced inspiratory effort Prominent vascular congestion No lobar pneumonia IMPRESSION: Suspicious for mild heart failure
== END | disposition home or self-care (01) ==
PROVIDERS: PCP Registered Nurse Community Health; Referring Provider Registered Nurse Community Health; Visit Provider Registered Nurse Community Health
DX: J44.9 Chronic obstructive pulmonary disease, unspecified (principal); R06.02 Shortness of breath
CPT/HCPCS: 71046

== ENCOUNTER → 2025-01-10 | Outpatient (CLI) | payer MEDICARE, MEDICAID, SELFPAY ==
[2025-01-10 10:41] LABS: Basophils # (Auto) 0.1 Thou/mm3 (0.0-0.2); Basophils % (Auto) 1 % (0-2.5); Eosinophils # (Auto) 0.2 Thou/mm3 (0.0-0.5); Eosinophils % (Auto) 4 % (0-10); Hematocrit 48.5 % (41.0-53.0); Hemoglobin 17.1 g/dL (13.5-16.0); Immature Granulocytes Auto 0.02 Thou/mm3 (0.00-0.00); Lymphocytes # (Auto) 1.7 Thou/mm3 (1.0-4.8); Lymphocytes % (Auto) 30 % (10-50); Mean Corpuscular HGB Conc 35.3 g/dl (31.0-37.0); Mean Corpuscular Hemoglobin 30.6 pg (25.0-35.0); Mean Corpuscular Volume 87 fL (80-100); Monocytes # (Auto) 0.5 Thou/mm3 (0.0-0.8); Monocytes % (Auto) 9 % (0-12); Neutrophils # (Auto) 3.3 Thou/mm3 (1.8-7.7); Neutrophils % (Auto) 57 % (37-80); Nucleated Red Blood Cell # 0.00 Thou/mm3 (0.00-0.00); Nucleated Red Blood Cell % 0 /100 WBC (0); Platelet Count 171 Thou/mm3 (140-440); RDW Standard Deviation 37.7 fL (35.1-43.9); Red Blood Count 5.58 Miln/mm3 (4.50-5.90); White Blood Count 5.8 Thou/mm3 (3.8-10.6)
[2025-01-10 10:51] LABS: Glucose Estimated Average 117 mg/dL (80-131); Hemoglobin A1C 5.7 % Hgb (4.8-6.0)
[2025-01-10 10:58] LABS: B-Type Natriuretic Peptide < 20 pg/mL (0-100)
[2025-01-10 11:07] LABS: Alanine Aminotransferase 14 U/L (10-49); Albumin, Serum 4.1 gm/dL (3.4-4.8); Albumin/Globulin Ratio 2.1 (1.2-2.2); Alkaline Phosphatase 94 U/L (46-116); Anion Gap 9 (7-16); Aspartate Amino Transferase 16 U/L (0-34); BUN/Creatinine Ratio 9 Ratio (12-20); Bilirubin,Total 0.8 mg/dL (0.3-1.2); Blood Urea Nitrogen 9 mg/dL (9-23); Calcium 8.8 mg/dL (8.3-10.6); Calcium (Corrected) 8.8 mg/dL (8.5-10.1); Carbon Dioxide 27.5 mMol/L (20.0-31.0); Cardiac Risk Estimate 3.8 RATIO (4.0-6.7); Chloride 105 mMol/L (98-107); Cholesterol 183 mg/dL (132-200); Creatinine (Component) 1.0 mg/dL (0.6-1.3); Globulin 2.0 gm/dL (2.3-3.5); Glucose 100 mg/dL (74-106); HDL Cholesterol 48 mg/dL (40-60); LDL Cholesterol,Calculated 117 mg/dL (0-130); Osmolality,Calculated 279 (275-295); Potassium 4.4 mMol/L (3.4-5.1); Sodium 141 mMol/L (136-145); Total Protein 6.1 gm/dL (5.7-8.2); Triglycerides 91 mg/dL (30-150); eGFR > 60 See Note
== END | disposition home or self-care (01) ==
PROVIDERS: PCP Registered Nurse Community Health; Referring Provider Registered Nurse Community Health; Visit Provider Registered Nurse Community Health
DX: I11.0 Hypertensive heart disease with heart failure (principal); I50.9 Heart failure, unspecified
CPT/HCPCS: 36415; 80053; 80061; 83036; 83880; 85025

== ENCOUNTER 2025-02-13 17:35 | Emergency (ER) | payer MEDICARE, MEDICAID, SELFPAY ==
[2025-02-13 17:36] VITALS: BMI 34.3
--- NOTE | 2025-02-13 17:41 | EKG_ITS ---
[facility] Test Date: 2025-02-13 Pat Name: MARÍA ELENA MCCARTHY Department: Room: - Gender: Male [employer]: : 1950 Requested By: ED Temporary Provider Order Number: [id number] Reading MD: ED Temporary Provider Measurements Intervals Union Rate: 67 P: 38 NC: 188 QRS: -31 QRSD: 114 T: 30 QT: 403 QTc: 428 Interpretive Statements SINUS RHYTHM LEFT AXIS DEVIATION [QRS AXIS < -30] POSSIBLE INFERIOR MYOCARDIAL INFARCTION , PROBABLY OLD [30 ms Q WAVE IN II/aVF] Compared to ECG 12/04/2024 17:19:33 Left-axis deviation now present Myocardial infarct finding still present /store/S0/[id number].pdf
[2025-02-13 17:51] VITALS: BP 171/99; PULSE 68; RESP 24; TEMP 36.9; O2SAT 95
--- NOTE | 2025-02-13 18:07 | XR_ITS ---
Examination: PA chest single view Technique: Upright PA chest single view Date and time: February 13, 2025, 1822 hrs., Comparison January 02, 2025 Indications: Shortness of breath today. Findings: Mild heart failure. Mild to moderate enlargement left ventricle. Enlarged ectatic thoracic aorta. Prominent vascular congestion, suspicious for early septal edema at the lung bases Moderate osteopenia Impression: Early heart failure
--- NOTE | 2025-02-13 18:08 | PD.EDRME ---
Rapid Medical Screening Exam RME Arrival date/time: 02/13/25 17:35 This is a case of 74-year-old male with history of asthma came in in the emergency room due to shortness of breath and chest pain today worsening of the symptoms this patient decided to start consult here in the emergency room Chief Complaint: Shortness of Breath/Dyspnea Time Seen by Provider: 02/13/25 18:05 Vital signs: Vital Signs Temperature 98.5 F 02/13/25 17:51 Pulse Rate 68 02/13/25 17:51 Respiratory Rate 24 H 02/13/25 17:51 Blood Pressure 171/99 H 02/13/25 17:51 Pulse Oximetry (%) 95 02/13/25 17:51 Oxygen Delivery Method Room Air 02/13/25 17:51
[2025-02-13 18:44] LABS: Basophils # (Auto) 0.1 Thou/mm3 (0.0-0.2); Basophils % (Auto) 1 % (0-2.5); Eosinophils # (Auto) 0.5 Thou/mm3 (0.0-0.5); Eosinophils % (Auto) 9 % (0-10); Hematocrit 42.9 % (41.0-53.0); Hemoglobin 15.1 g/dL (13.5-16.0); Immature Granulocytes Auto 0.03 Thou/mm3 (0.00-0.00); Lymphocytes # (Auto) 1.5 Thou/mm3 (1.0-4.8); Lymphocytes % (Auto) 27 % (10-50); Mean Corpuscular HGB Conc 35.2 g/dl (31.0-37.0); Mean Corpuscular Hemoglobin 30.8 pg (25.0-35.0); Mean Corpuscular Volume 87 fL (80-100); Monocytes # (Auto) 0.7 Thou/mm3 (0.0-0.8); Monocytes % (Auto) 12 % (0-12); Neutrophils # (Auto) 2.8 Thou/mm3 (1.8-7.7); Neutrophils % (Auto) 51 % (37-80); Nucleated Red Blood Cell # 0.00 Thou/mm3 (0.00-0.00); Nucleated Red Blood Cell % 0 /100 WBC (0); Platelet Count 154 Thou/mm3 (140-440); RDW Standard Deviation 39.0 fL (35.1-43.9); Red Blood Count 4.91 Miln/mm3 (4.50-5.90); White Blood Count 5.6 Thou/mm3 (3.8-10.6)
[2025-02-13] MEDS: ALBUTEROL/IPRATROPIUM (Duoneb) RT SOL 3 ML NEBU INH (18:59)
[2025-02-13 19:00] VITALS: PULSE 70; RESP 24; O2SAT 96
[2025-02-13 19:02] LABS: B-Type Natriuretic Peptide < 20 pg/mL (0-100)
[2025-02-13 19:04] LABS: Alanine Aminotransferase 14 U/L (10-49); Albumin, Serum 4.2 gm/dL (3.4-4.8); Albumin/Globulin Ratio 2.2 (1.2-2.2); Alkaline Phosphatase 91 U/L (46-116); Anion Gap 9 (7-16); Aspartate Amino Transferase 19 U/L (0-34); BUN/Creatinine Ratio 9 Ratio (12-20); Bilirubin,Total 0.7 mg/dL (0.3-1.2); Blood Urea Nitrogen 8 mg/dL (9-23); Calcium 9.3 mg/dL (8.3-10.6); Calcium (Corrected) 9.3 mg/dL (8.5-10.1); Carbon Dioxide 27.4 mMol/L (20.0-31.0); Chloride 103 mMol/L (98-107); Creatinine (Component) 0.9 mg/dL (0.6-1.3); Estimated Creatinine Clearance 72.0 mL/min (>60); Globulin 1.9 gm/dL (2.3-3.5); Glucose 98 mg/dL (74-106); Osmolality,Calculated 275 (275-295); Potassium 3.8 mMol/L (3.4-5.1); Sodium 139 mMol/L (136-145); Total Protein 6.1 gm/dL (5.7-8.2); Troponin I < 0.020 ng/mL (0.0-0.045); eGFR > 60 See Note
[2025-02-13] MEDS: MethylPREDNISolone SOD SUCC 62.5 MG/ML 2ML VIAL 125 MG IM (19:50)
[2025-02-13 21:14] VITALS: BP 157/84; PULSE 60; RESP 23; TEMP 37; O2SAT 94
--- NOTE | 2025-02-13 21:17 | PD.EDADULT ---
ED General RME/HPI General Chief complaint: Shortness of Breath/Dyspnea Stated complaint: DIFF BREATHING x 2 DAYS, HX CHF Time Seen by Provider: 02/13/25 18:05 Arrival date/time: 02/13/25 17:35 CC: Throat wheezing HPI family member describes the wheezing as the patient is refusing to wear his oxygen that he needs 22/12. The patient denies any chest pain difficulty breathing headache nausea vomiting or diarrhea. Family ember state he is stubborn and does not want to wear his oxygen on a regular basis used to have a long history of smoking and drinking alcohol. Currently patient is awake alert oriented state he feels much better after the breathing treatment. RME / HPI RME / HPI narrative: 02/13/25 17:35 This is a case of 74-year-old male with history of asthma came in in the emergency room due to shortness of breath and chest pain today worsening of the symptoms this patient decided to start consult here in the emergency room Related Data Home Medications ?Medication ?Instructions ?Recorded ?Confirmed lisinopril 40 mg tablet 40 mg PO QDAY 04/06/23 07/13/24 hydrocortisone 2.5 % topical cream 1 applic [place] QDAY 03/29/24 04/14/24 with perineal applicator mesalamine 1,000 mg rectal 1,000 mg [place] QHSPRN PRN Pain 03/29/24 04/14/24 suppository terbinafine HCl 250 mg tablet 250 mg PO QDAY 03/29/24 04/14/24 lisinopril 40 mg tablet 40 mg PO QDAY 11/17/24 11/17/24 Previous Rx's ?Medication ?Instructions ?Recorded acetaminophen 300 mg-codeine 30 mg 2 tab PO TID PRN pain #20 tabs 04/24/24 tablet albuterol sulfate 90 mcg/actuation 2 inh inhalation QID PRN shortness 04/24/24 aerosol inhaler of breath or wheezing #8.5 grams methylprednisolone 4 mg tablets in 4 mg PO QDAY #21 tabs 07/15/24 a dose pack (Medrol (Jamin)) benzonatate 200 mg capsule 200 mg PO TID PRN cough #30 caps 07/17/24 albuterol sulfate 90 mcg/actuation 1 inh inhalation QID #1 ea 02/13/25 breath activated powder inhaler Allergies Allergy/AdvReac Type Severity Reaction Status Date / Time No Known Allergies Allergy Verified 02/13/25 17:39 Review of Systems Review of Systems Narrative Review of Systems: GEN: No fever, no chills, no weight loss EYES: No discharge, no visual changes, no pain HEENT: No ear pain, no congestion, no sore throat PULM: No shortness of breath, no cough, no congestion, wheezing CV: No chest pain, no dyspnea on exertion, no palpitations GI: No nausea, no vomiting, no diarrhea, no pain, no constipation : No frequency, no urgency, no dysuria MUSC/SKEL: No joint pain, no back pain SKIN: No rash PSYCH: No hallucinations, no depression HEME/LYMPH: No easy bleeding or bruising tendencies NEURO: No weakness, no headache Past Medical History Past Medical History NEUROLOGIC: Positive Neurological Disorders and Migraine; Negative Seizures CARDIAC: Positive Cardiac Disorders and Hypertension; Negative Congestive Heart Failure RESPIRATORY: Positive Asthma and Pneumonia (1 YEAR AGO DUE TO COVID); Negative Chronic Obstructive Pulmonary Disease (COPD) GASTROINTESTINAL: Positive Gastrointestinal Disorders, Diverticulosis, Hemorrhoids and Gastroesophageal Reflux Disease GENITOURINARY: Positive Genitourinary Disorders, Prostate Cancer (had surgery) and Benign Prostatic Hyperplasia; Negative Renal Disease MUSCULOSKELETAL: Negative Musculoskeletal Disorders ENT: Positive Cataracts; Negative Glaucoma ENDOCRINE: Negative Endocrine Disorders, Diabetes Mellitus Type 1 or Diabetes Mellitus Type 2 HEMATOLOGIC: Negative Blood Disorders, Anemia or Sickle Cell Disease OTHER HISTORY: Positive Cancer and Prostate Cancer (had surgery); Negative Falls, Blood Transfusions, Anesthesia Reactions, MRSA, Chicken Pox, Measles or Mumps Surgical History SURGICAL: Positive Abdominal Surgery and Transurethral Resection Social History SMOKING STATUS: Former smoker SUBSTANCE USE: does not use ED Exam Narrative Physical exam: [General: Obese not in any acute distress Head normocephalic HEENT: Within acceptable limits Neck is supple nontender Chest equal chest rise nontender to palpation Respiratory: Clear to auscultation no wheezes crackles or rubs CV: Rate rhythm is regular no murmurs rubs or clicks Abdomen is distended secondary to body habitus soft nontender no masses positive bowel sounds all 4 quadrants Back: No CVA tenderness no spinous process tenderness from cervical spine thoracic and lumbar spine Skin: Intact no petechiae rash induration ulceration or crepitus Extremities: Moving all extremity against resistance cap refill less than 2 seconds neurosensory intact Neuro: Awake alert oriented x3 Glascow coma 15 no focal deficits] Course Quality Measures none Orders Category Date Time Status Bedside COVID-19 Antigen Test NOW Care 02/13/25 18:07 Active Bedside Influenza A&B Antigen Test NOW Care 02/13/25 18:07 Active EKG (ED ONLY) *Do not use* NOW Care 02/13/25 17:41 Completed EKG (ED Only) Stat Exams 02/13/25 17:41 Draft XR chest 1V portable Stat Exams 02/13/25 18:07 Completed BNP [B-Type Natriuretic Peptide] Stat Lab 02/13/25 18:10 Completed CBC Stat Lab 02/13/25 18:10 Completed CMP [Comprehensive Metabolic Panel] Stat Lab 02/13/25 18:10 Completed Troponin I Stat Lab 02/13/25 18:10 Completed Albuterol/Ipratr Rt Mary [Duoneb Rt Mary] Med 02/13/25 18:07 Discontinued 3 ml INH X1 ONE MethylPREDNISolone.* [SoluMEDROL Inj] Med 02/13/25 18:07 Discontinued 125 mg IM X1 ONE Vital Signs Vital signs: Vital Signs Temperature 98.5 F 02/13/25 17:51 Pulse Rate 68 02/13/25 17:51 Respiratory Rate 24 H 02/13/25 17:51 Blood Pressure 171/99 H 02/13/25 17:51 Pulse Oximetry (%) 95 02/13/25 17:51 Oxygen Delivery Method Room Air 02/13/25 17:51 Discharge Plan Plan Patient Disposition: HOME (Self Care) Patient condition on transfer: Stable Prescriptions/Referrals Prescriptions/Med Rec: New albuterol sulfate 90 mcg/actuation aerosol powdr breath activated 1 inh inhalation QID Qty: 1 1RF No Action lisinopril 40 mg tablet 40 mg PO QDAY lisinopril 40 mg tablet 40 mg PO QDAY benzonatate 200 mg capsule 200 mg PO TID PRN (Reason: cough) Qty: 30 0RF mesalamine 1,000 mg suppository 1,000 mg [place] QHSPRN PRN (Reason: Pain) Patient Comments: INSERTE 1 SUPPOSITORIO RECTALMENTE VANNA Pan AL ACOSTARSE hydrocortisone 2.5 % cream with perineal applicator 1 applic [place] QDAY Patient Comments: APLIQUE 1 GRAM RECTALMENTE DIARIO terbinafine HCl 250 mg tablet 250 mg PO QDAY Patient Comments: TOME 1 TABLETA POR V A ORAL TODOS LOS D acetaminophen-codeine 300-30 mg tablet 2 tab PO TID MDD 6 PRN (Reason: pain) Qty: 20 0RF albuterol sulfate 90 mcg/actuation HFA aerosol inhaler 2 inh inhalation QID PRN (Reason: shortness of breath or wheezing) Qty: 8.5 0RF methylprednisolone [Medrol (Jamin)] 4 mg tablets,dose pack 4 mg PO QDAY Qty: 21 0RF Referrals: No Primary/Family,Physician [Primary Care Provider] - In 1 week Fidencio Hyde MD [Physician, Family Practice] - In 1 week Problem List Clinical Impression: Wheezing Patient/Caregiver Discharge Instructions Other Activity Instructions:: Use her oxygen at home as a regular basis breathing treatments as needed if there is worsening of symptoms follow-up your primary care doctor return the emergency room for reevaluation. Education Materials: ED Bronchitis with Wheezing (Adult) Print Language: American Stand Alone Forms: Anjana Award Info., Patient Portal Info Letter PA/TELEVISION SCHEDULE COORDINATOR Supervising Physician PA/TELEVISION SCHEDULE COORDINATOR Supervising Physician: Alex Solorzano ENP [facility] Clinical Information Provided by patient Medical Records Reviewed [facility] Meds/Rx Considered, not Ordered None Labs/Rad/Tests considered, not Ordered None Chronic Illness/Social Conditions which may negatively complicate care or outcome(s)-explain: COPD EKG EKG Interpretation narrative: EKG performed at 1751 shows a ventricular rate of 6 7 [place] interval 188 QRS of 114 QTc of 419 sinus rhythm left axis deviation. Lab Interpretation Labs: interpreted by me Lab(s) interpretation(s): CBC shows no acute leukocytosis anemia thrombocytopenia CMP shows no significant electrolyte imbalances renal impairment transaminitis or T. bili elevation Troponin is unremarkable BNP within acceptable limits Imaging Imaging interpretation: interpreted by me Provider imaging interpretation(s): Chest x-ray shows mild vascular congestion as interpreted by me read by radiology Radiology reports / interpretation(s): Patient feels much better after breathing treatment oxygen saturations on room are 93 to 97%. This time we will discharge the patient home with a refill of his inhaler. Medication Administration(s) Medication Administration History Discontinued Medications Albuterol/Ipratropium (Albuterol/Ipratropium (Duoneb) Rt Mary 3 Ml Nebu) 3 ml INH X1 ONE Stop: 02/13/25 18:08 Last Admin: 02/13/25 18:59 Dose: 3 ml Documented By: DM Methylprednisolone Sodium Succinate (Methylprednisolone Sod Succ 62.5 Mg/Ml 2ml Vial) 125 mg IM X1 ONE Stop: 02/13/25 18:08 Last Admin: 02/13/25 19:50 Dose: 125 mg Documented By:
== END 2025-02-13 21:38 | disposition home or self-care (01) ==
PROVIDERS: Nurse Practitioner Family; Emergency Provider Emergency Medicine
DX: R06.2 Wheezing (principal); R94.31 Abnormal electrocardiogram [ECG] [EKG]; I10 Essential (primary) hypertension; Z87.891 Personal history of nicotine dependence
CPT/HCPCS: 36415; 71045; 80053; 83880; 84484; 85025; 87400; 87811; 93005; 94640; 96372; 99283; A9270; J2919

== ENCOUNTER 2025-02-21 18:38 | Emergency (ER) | payer MEDICARE, MEDICAID, SELFPAY ==
[2025-02-21 18:52] VITALS: BP 154/88; PULSE 86; RESP 22; TEMP 36.5; O2SAT 93
--- NOTE | 2025-02-21 18:58 | XR_ITS ---
Examination: PA lateral chest 2 views Technique: Upright PA lateral chest 2 views Date and time: February 21, 2025 1933 hrs. Indications: Chest pain shortness of breath today. Findings: Mild prominence left ventricle Ectatic thoracic aorta. Mild vascular congestion. No lobar pneumonia or pulmonary edema Impression: Mild vascular congestion
--- NOTE | 2025-02-21 18:58 | EKG_ITS ---
[facility] Test Date: 2025-02-21 Pat Name: MARÍA ELENA MCCARTHY Department: Room: - Gender: Male [employer]: : 1950 Requested By: Marcos Berry Order Number: [id number] Reading MD: Marcos Berry Measurements Intervals Jackson Rate: 84 P: 28 MD: 184 QRS: -42 QRSD: 97 T: 9 QT: 352 QTc: 418 Interpretive Statements SINUS RHYTHM LEFT AXIS DEVIATION [QRS AXIS < -30] LOW QRS VOLTAGE IN PRECORDIAL LEADS [QRS DEFLECTION < 1.0 mV IN CHEST LEADS] INCOMPLETE RIGHT BUNDLE BRANCH BLOCK [90+ ms QRS DURATION, TERMINAL R IN V1/V2, 40+ ms S IN I/aVL/V4/V5/V6] INFERIOR MYOCARDIAL INFARCTION , PROBABLY OLD [40+ ms Q WAVE AND/OR ST/T ABNORMALITY IN II/aVF] Compared to ECG 02/13/2025 17:51:35 Low QRS voltage now present Incomplete right bundle-branch block now present Myocardial infarct finding still present /store/S0/[id number]
--- NOTE | 2025-02-21 18:59 | EDRME_ITS ---
Rapid Medical Screening Exam [facility] Arrival date/time: 02/21/25 18:38 74M with history of HTN and asthma (patient does not smoke) presents to ED with 1 week of worsening cough and SOB. Chief Complaint: Shortness of Breath/Dyspnea Vital signs: Vital Signs Temperature 97.7 F 02/21/25 18:52 Pulse Rate 86 02/21/25 18:52 Respiratory Rate 22 H 02/21/25 18:52 Blood Pressure 154/88 H 02/21/25 18:52 Pulse Oximetry (%) 93 L 02/21/25 18:52 Oxygen Delivery Method Room Air 02/21/25 18:52
--- NOTE | 2025-02-21 19:18 | PD.EDRME ---
Rapid Medical Screening Exam RME Arrival date/time: 02/21/25 18:38 02/21/25 18:38 74M with history of HTN and asthma (patient does not smoke) presents to ED with 1 week of worsening cough and SOB. Chief Complaint: Shortness of Breath/Dyspnea Vital signs: Vital Signs Temperature 97.7 F 02/21/25 18:52 Pulse Rate 86 02/21/25 18:52 Respiratory Rate 22 H 02/21/25 18:52 Blood Pressure 154/88 H 02/21/25 18:52 Pulse Oximetry (%) 93 L 02/21/25 18:52 Oxygen Delivery Method Room Air 02/21/25 18:52 RME Narrative: 02/21/25 18:38 74M with history of HTN and asthma (patient does not smoke) presents to ED with 1 week of worsening cough and SOB.
[2025-02-21 19:19] LABS: Lactate (Lactic Acid) 1.5 mMol/L (0.4-2.0)
[2025-02-21 19:23] LABS: Basophils # (Auto) 0.1 Thou/mm3 (0.0-0.2); Basophils % (Auto) 1 % (0-2.5); Eosinophils # (Auto) 0.8 Thou/mm3 (0.0-0.5); Eosinophils % (Auto) 11 % (0-10); Hematocrit 45.6 % (41.0-53.0); Hemoglobin 15.9 g/dL (13.5-16.0); Immature Granulocytes Auto 0.07 Thou/mm3 (0.00-0.00); Lymphocytes # (Auto) 1.7 Thou/mm3 (1.0-4.8); Lymphocytes % (Auto) 23 % (10-50); Mean Corpuscular HGB Conc 34.9 g/dl (31.0-37.0); Mean Corpuscular Hemoglobin 30.4 pg (25.0-35.0); Mean Corpuscular Volume 87 fL (80-100); Monocytes # (Auto) 0.7 Thou/mm3 (0.0-0.8); Monocytes % (Auto) 10 % (0-12); Neutrophils # (Auto) 3.8 Thou/mm3 (1.8-7.7); Neutrophils % (Auto) 54 % (37-80); Nucleated Red Blood Cell # 0.00 Thou/mm3 (0.00-0.00); Nucleated Red Blood Cell % 0 /100 WBC (0); Platelet Count 167 Thou/mm3 (140-440); RDW Standard Deviation 39.2 fL (35.1-43.9); Red Blood Count 5.23 Miln/mm3 (4.50-5.90); White Blood Count 7.1 Thou/mm3 (3.8-10.6)
[2025-02-21] MEDS: DEXAMETHASONE SOD PHOS INJ 10 MG/ML VIAL PO (19:30)
[2025-02-21 19:50] LABS: Alanine Aminotransferase 14 U/L (10-49); Albumin, Serum 4.4 gm/dL (3.4-4.8); Albumin/Globulin Ratio 2.0 (1.2-2.2); Alkaline Phosphatase 105 U/L (46-116); Anion Gap 8 (7-16); Aspartate Amino Transferase 16 U/L (0-34); BUN/Creatinine Ratio 7 Ratio (12-20); Bilirubin,Total 0.6 mg/dL (0.3-1.2); Blood Urea Nitrogen 7 mg/dL (9-23); Calcium 9.4 mg/dL (8.3-10.6); Calcium (Corrected) 9.4 mg/dL (8.5-10.1); Carbon Dioxide 26.5 mMol/L (20.0-31.0); Chloride 105 mMol/L (98-107); Creatinine (Component) 1.0 mg/dL (0.6-1.3); Globulin 2.2 gm/dL (2.3-3.5); Glucose 124 mg/dL (74-106); Magnesium 1.9 mg/dL (1.6-2.6); Osmolality,Calculated 276 (275-295); Potassium 3.7 mMol/L (3.4-5.1); Procalcitonin 0.08 ng/ml (0.0-0.49); Sodium 139 mMol/L (136-145); Total Protein 6.6 gm/dL (5.7-8.2); eGFR > 60 See Note
[2025-02-21 20:09] VITALS: BP 146/85; PULSE 77; RESP 17; TEMP 36.7; O2SAT 92
[2025-02-21] MEDS: LEVALBUTEROL RT 1.25 MG/0.5 ML NEBU 5 MG INH (20:18)
[2025-02-21] MEDS: IPRATROPIUM RT 0.5 MG/ 2.5 ML NEBU 1 MG INH (20:18)
[2025-02-21] MEDS: SODIUM CHLORIDE RT SOL 0.9% 3 ML NEBU INH (20:18)
[2025-02-21 20:20] VITALS: PULSE 100; RESP 26; O2SAT 92
[2025-02-21 20:35] LABS: Influenza A Ag Negative; Influenza B Ag Negative
[2025-02-21 22:00] VITALS: BP 120/87; PULSE 94; RESP 19; TEMP 36.8; O2SAT 92
--- NOTE | 2025-02-22 01:14 | PD.EDSOB ---
ED SOB =RME/HPI General Chief Complaint: Shortness of Breath/Dyspnea Stated Complaint: SOB, COUGH, SENT BY PCP Source: patient Arrival date/time: 02/21/25 18:38 RME / HPI RME / HPI Narrative: 02/21/25 18:38 74M with history of HTN and asthma (patient does not smoke) presents to ED with 1 week of worsening cough and SOB. Mr. Tevin Rashid is a 74-year-old male with past medical history of COPD/asthma on 2 L nasal cannula at night, hypertension and BPH who presented to [facility] emergency department on 02/21/2025 with a chief complaint of shortness of breath. Patient was evaluated in E was found to be actively wheezing with increased cough, workup ordered and he was given dexamethasone 10 mg p.o., lev albuterol 5 mg and ipratropium 1 mg. Patient seen at bedside after treatments, SpO2 93 on room air, no increased work of breathing patient seems stable not in acute exacerbation of COPD, tested negative for COVID and flu, labs unremarkable chest x-ray negative for pneumonia, complaining of cough will be given guaifenesin and will be discharged, requesting a refill for inhalers and cough medication. Patient denies any nausea vomiting chest pain palpitations syncope dizziness falls headache and leg swelling. Related Data Home Medications ?Medication ?Instructions ?Recorded ?Confirmed lisinopril 40 mg tablet 40 mg PO QDAY 04/06/23 07/13/24 hydrocortisone 2.5 % topical cream 1 applic PA QDAY 03/29/24 04/14/24 with perineal applicator mesalamine 1,000 mg rectal 1,000 mg PA QHSPRN PRN Pain 03/29/24 04/14/24 suppository terbinafine HCl 250 mg tablet 250 mg PO QDAY 03/29/24 04/14/24 lisinopril 40 mg tablet 40 mg PO QDAY 11/17/24 11/17/24 Previous Rx's ?Medication ?Instructions ?Recorded acetaminophen 300 mg-codeine 30 mg 2 tab PO TID PRN pain #20 tabs 04/24/24 tablet albuterol sulfate 90 mcg/actuation 2 inh inhalation QID PRN shortness 04/24/24 aerosol inhaler of breath or wheezing #8.5 grams methylprednisolone 4 mg tablets in 4 mg PO QDAY #21 tabs 07/15/24 a dose pack (Medrol (Jamin)) benzonatate 200 mg capsule 200 mg PO TID PRN cough #30 caps 07/17/24 albuterol sulfate 90 mcg/actuation 1 inh inhalation QID #1 ea 02/13/25 breath activated powder inhaler albuterol sulfate 90 mcg/actuation 1 inh inhalation QID PRN shortness 02/22/25 aerosol inhaler of breath or wheezing #8.5 grams budesonide 160 mcg-glycopyr 9 2 inh inhalation BID #10.7 grams 02/22/25 mcg-formot 4.8 mcg/actuation HFA inhaler (Breztri Aerosphere) dextromethorphan-guaifenesin 10 10 ml PO Q4H PRN cough #237 mL 02/22/25 mg-100 mg/5 mL oral syrup prednisone 20 mg tablet 20 mg PO BID 5 days #10 tabs 02/22/25 Allergies Allergy/AdvReac Type Severity Reaction Status Date / Time No Known Allergies Allergy Verified 02/21/25 18:41 Review of Systems Review of Systems Systems Reviewed: All systems reviewed, normal except as documented Past Medical History Past Medical History NEUROLOGIC: Positive Neurological Disorders and Migraine; Negative Seizures CARDIAC: Positive Cardiac Disorders and Hypertension; Negative Congestive Heart Failure RESPIRATORY: Positive Asthma and Pneumonia (1 YEAR AGO DUE TO COVID); Negative Chronic Obstructive Pulmonary Disease (COPD) GASTROINTESTINAL: Positive Gastrointestinal Disorders, Diverticulosis, Hemorrhoids and Gastroesophageal Reflux Disease GENITOURINARY: Positive Genitourinary Disorders, Prostate Cancer (had surgery) and Benign Prostatic Hyperplasia; Negative Renal Disease MUSCULOSKELETAL: Negative Musculoskeletal Disorders ENT: Positive Cataracts; Negative Glaucoma ENDOCRINE: Negative Endocrine Disorders, Diabetes Mellitus Type 1 or Diabetes Mellitus Type 2 HEMATOLOGIC: Negative Blood Disorders, Anemia or Sickle Cell Disease OTHER HISTORY: Positive Cancer and Prostate Cancer (had surgery); Negative Falls, Blood Transfusions, Anesthesia Reactions, MRSA, Chicken Pox, Measles or Mumps Surgical History SURGICAL: Positive Abdominal Surgery and Transurethral Resection Social History SMOKING STATUS: Former smoker SUBSTANCE USE: does not use ED Exam Narrative Physical exam: Physical Exam General: Awake and in no acute distress. Conversational and non-toxic appearing. HEENT: Normocephalic, atraumatic, mucous membranes moist. Heart: Regular rate and rhythm, no murmurs. Lungs: Clear to auscultation with no wheezing or crackles. Abdomen: Soft, obese, nondistended, nontender, positive bowel sounds. ?No guarding or rebound tenderness. Neurologic: Alert and oriented x3, no gross neurological deficit, and patient able to move all 4 extremities. Extremities: No edema. Skin: No rash or ecchymoses. Course Quality Measures none Orders Category Date Time Status Bedside COVID-19 Antigen Test NOW Care 02/21/25 18:59 Completed EKG (ED ONLY) *Do not use* NOW Care 02/21/25 18:58 Completed EKG (ED Only) Stat Exams 02/21/25 18:58 Draft XR chest 2V Stat Exams 02/21/25 18:58 Completed CBC Stat Lab 02/21/25 19:09 Completed Comprehensive Metabolic Panel Stat Lab 02/21/25 19:09 Completed Influenza A & B Rapid Panel Stat Lab 02/21/25 19:59 Completed Lactate (Lactic Acid) Stat Lab 02/21/25 19:09 Completed Magnesium Stat Lab 02/21/25 19:09 Completed Procalcitonin Stat Lab 02/21/25 19:09 Completed Dexamethasone Inj [Decadron Inj] Med 02/21/25 18:58 Discontinued 10 mg PO X1 ONE Ipratropium Delancey Rt Mary [Atrovent Rt Mary] Med 02/21/25 18:58 Discontinued 1 mg INH X1 ONE Levalbuterol Rt [Xopenex Rt Mary] Med 02/21/25 18:58 Discontinued 5 mg INH X1 ONE Sodium Chloride Rt Mary 0.9% [NS Rt Mary 0.9%] Med 02/21/25 18:58 Discontinued 3 ml INH PRN PRN guaiFENesin SYRUP [Robitussin Syrup] Med 02/22/25 01:19 Discontinued 200 mg PO X1 ONE Vital Signs Vital signs: Vital Signs Temperature 97.7 F 02/21/25 18:52 Pulse Rate 86 02/21/25 18:52 Respiratory Rate 22 H 02/21/25 18:52 Blood Pressure 154/88 H 02/21/25 18:52 Pulse Oximetry (%) 93 L 02/21/25 18:52 Oxygen Delivery Method Room Air 02/21/25 18:52 Shortness of Breath / Dyspnea MDM Narrative MDM Narrative:: #COPD #Shortness of breath 74-year-old male with past medical history of COPD/asthma on 2 L nasal cannula at night, hypertension and BPH who presented to [facility] with shortness of breath. Patient was wheezing on presentation, was given breathing treatments reevaluated after seems to be stable. Workup: Chest x-ray negative for pneumonia, mild vascular congestion EKG shows sinus rhythm, rate 418 Influenza and COVID-negative CBC within normal limits, no white count noted Chemistry unremarkable, renal panel within normal limits, LFTs within normal limits Pro-Marcos negative and lactate negative as well. Patient was given dexamethasone 10 mg x 1, levalbuterol 5 mg inhalation x 1, ipratropium 1 mg inhalational x 1 and guaifenesin 200 mg p.o. x 1 Patient will be discharged, discharge instructions as below Case discussed with Attending Physician Dr. Jeyson Maldonado MD Internal Medicine PGY-2 Disclaimer: This note was dictated by speech recognition. Minor errors in surgical garment assembly supervisor may be present due to voice recognition software. Patient data External records reviewed:: [facility] previous records Clinical information provided by:: patient Social determinants that could affect healthcare access:: none Patient has the following chronic illnesses:: None How is presenting disease/condition affected by chronic disease/condition?: exacerbated by Evaluation data The following diagnostics were reviewed and interpreted by me:: lab results, radiology exam(s) and EKG tracing(s) Lab and/or radiology exams considered but not ordered:: None Interpretation Summary: Chest x-ray negative for pneumonia, mild vascular congestion EKG shows sinus rhythm, rate 418 Influenza and COVID-negative CBC within normal limits, no white count noted Chemistry unremarkable, renal panel within normal limits, LFTs within normal limits Pro-Marcos negative and lactate negative as well. Medications / Prescriptions Medications or Prescriptions considered but not ordered:: None Medication administrations:: Medication Administration History Discontinued Medications Dexamethasone Sodium Phosphate (Dexamethasone Sod Phos Inj 10 Mg/Ml Vial) 10 mg PO X1 ONE Stop: 02/21/25 18:59 Last Admin: 02/21/25 19:30 Dose: 10 mg Documented By: MARÍA Guaifenesin (Guaifenesin Syrup 200 Mg/10 Ml Udc) 200 mg PO X1 ONE; Protocol Stop: 02/22/25 01:20 Last Admin: 02/22/25 01:25 Dose: 200 mg Documented By: CHARISSE Ipratropium Delancey (Ipratropium Rt 0.5 Mg/ 2.5 Ml Nebu) 1 mg INH X1 ONE Stop: 02/21/25 18:59 Last Admin: 02/21/25 20:18 Dose: 1 mg Documented By: LILIYA Levalbuterol HCl (Levalbuterol Rt 1.25 Mg/0.5 Ml Nebu) 5 mg INH X1 ONE Stop: 02/21/25 18:59 Last Admin: 02/21/25 20:18 Dose: 5 mg Documented By: LILIYA Sodium Chloride (Sodium Chloride Rt Mary 0.9% 3 Ml Nebu) 3 ml INH PRN PRN PRN Reason: SOLN Stop: 03/23/25 18:57 Last Admin: 02/21/25 20:18 Dose: 3 ml Documented By: LILIYA As above Consultations Consultation(s) initiated? (list below): No Diagnosis Shortness of Breath Differential Diagnosis: acute exacerbation of chronic obstructive airways disease Most likely diagnosis given after review of the tests above:: COPD Admission Indicated Admission indicated?: not indicated Admission Request Was there a request for admission?: No Disposition Plan Disposition Plan: Discharge Discharge Attestation Discharge Attestation: The patient and all family members were given an opportunity to ask questions and understood the discharge instructions. Discharge instructions specifically effects, indications for sooner follow up or return to the emergency department, and the expected course of current diagnosis. Patient condition: Stable Discharge Plan Plan Patient Disposition: HOME (Self Care) Patient condition on transfer: Stable Health Concerns: -You were seen in the emergency department today for shortness of breath, as you have COPD you were given breathing treatment and your shortness of breath improved, you tested negative for COVID and flu, most likely you have upper respiratory viral infection causing exacerbation of your COPD symptoms. We have prescribed your inhalers, use Breztri 2 inhalations twice a day, albuterol as needed and prednisone 20 mg twice a day for 5 days. Use dextromethorphan?guaifenesin as needed for cough management - You are prescribed home oxygen, continue to use home oxygen as prescribed. - We have not made any changes to your other medications - Follow-up with your primary care physician within 1 week - Return to emergency department if your symptoms worsen Prescriptions/Referrals Prescriptions/Med Rec: Moses [place] Aerosphere 160-9-4.8 mcg/actuation HFA aerosol inhaler 2 inh inhalation BID Qty: 10.7 0RF dextromethorphan-guaifenesin 10-100 mg/5 mL syrup 10 ml PO Q4H PRN (Reason: cough) Qty: 237 0RF albuterol sulfate 90 mcg/actuation HFA aerosol inhaler 1 inh inhalation QID PRN (Reason: shortness of breath or wheezing) Qty: 8.5 0RF prednisone 20 mg tablet 20 mg PO BID 5 Days Qty: 10 0RF No Action lisinopril 40 mg tablet 40 mg PO QDAY lisinopril 40 mg tablet 40 mg PO QDAY benzonatate 200 mg capsule 200 mg PO TID PRN (Reason: cough) Qty: 30 0RF albuterol sulfate 90 mcg/actuation aerosol powdr breath activated 1 inh inhalation QID Qty: 1 1RF mesalamine 1,000 mg suppository 1,000 mg PA QHSPRN PRN (Reason: Pain) Patient Comments: INSERTE 1 SUPPOSITORIO RECTALMENTE TODOS LOS D AL ACOSTARSE hydrocortisone 2.5 % cream with perineal applicator 1 applic PA QDAY Patient Comments: APLIQUE 1 GRAM RECTALMENTE DIARIO terbinafine HCl 250 mg tablet 250 mg PO QDAY Patient Comments: TOME 1 TABLETA POR V A ORAL TODOS LOS D acetaminophen-codeine 300-30 mg tablet 2 tab PO TID MDD 6 PRN (Reason: pain) Qty: 20 0RF albuterol sulfate 90 mcg/actuation HFA aerosol inhaler 2 inh inhalation QID PRN (Reason: shortness of breath or wheezing) Qty: 8.5 0RF methylprednisolone [Medrol (Jamin)] 4 mg tablets,dose pack 4 mg PO QDAY Qty: 21 0RF Referrals: Deanne Garzon, [facility] [Primary Care Provider] - In 1 week Problem List Clinical Impression: COPD (chronic obstructive pulmonary disease) Patient/Caregiver Discharge Instructions Discharge Activity: activity as tolerated Education Materials: COPD: Chronic Coughing, COPD: Coping with Mucus Print Language: Estonian Stand Alone Forms: Anjana Award Info., Patient Portal Info Letter
[2025-02-22] MEDS: guaiFENesin SYRUP 200 MG/10 ML UDC PO (01:25)
[2025-02-22 01:34] VITALS: BP 130/77; PULSE 93; RESP 19; TEMP 37; O2SAT 93
== END 2025-02-22 01:34 | disposition home or self-care (01) ==
PROVIDERS: Physician Assistant; Emergency Provider Emergency Medicine; PCP Registered Nurse Community Health
DX: J44.89 Other specified chronic obstructive pulmonary disease (principal); I10 Essential (primary) hypertension; N40.0 Benign prostatic hyperplasia without lower urinary tract symptoms
CPT/HCPCS: 36415; 71046; 80053; 83605; 83735; 84145; 85025; 87502; 87811; 93005; 94644; 99284; J1100; A9270

== ENCOUNTER → 2025-02-27 | Outpatient (CLI) | payer MEDICARE, MEDICAID, SELFPAY ==
[2025-02-27 11:46] LABS: Prostate Specific Antigen < 0.10 ng/mL (0-4.00)
== END | disposition home or self-care (01) ==
LOC: COPL 09:49
PROVIDERS: PCP Registered Nurse Community Health; Referring Provider Urology; Visit Provider Urology
DX: C61 Malignant neoplasm of prostate (principal)
CPT/HCPCS: 36415; 84153

== ENCOUNTER → 2025-03-20 | Outpatient (BNVA) | payer MEDICARE, MEDICAID, SELFPAY | END | disposition home or self-care (01) | PROVIDERS: PCP Registered Nurse Community Health; Referring Provider Registered Nurse Community Health; Visit Provider Physician Assistant | DX: C61 Malignant neoplasm of prostate (principal); N39.41 Urge incontinence; N52.9 Male erectile dysfunction, unspecified; I10 Essential (primary) hypertension | CPT/HCPCS: 99212; Q3014; G0463 ==

== ENCOUNTER 2025-04-24 16:44 | Emergency (ER) | payer MEDICARE, MEDICAID, SELFPAY ==
[2025-04-24 17:09] VITALS: BP 140/81; PULSE 72; RESP 22; O2SAT 94
--- NOTE | 2025-04-24 17:11 | XR_ITS ---
EXAMINATION: PA chest single view TECHNIQUE: Upright PA chest single view Date and time: April 24, 2025, 1728 hours Comparison 02/21/2025 INDICATIONS: Shortness of breath today. FINDINGS: Mild enlargement cardiac contour Ectatic thoracic aorta. Prominent vascular congestion. No lobar pneumonia Intact osseous structures IMPRESSION: Suspicious for early heart failure
--- NOTE | 2025-04-24 17:11 | XR_ITS ---
Examination: CT brain head without contrast. 2-D sagittal coronal reconstructions Date and time of exam: April 24, 2025, 1925 hours INDICATIONS: Generalized weakness today CTDI: vol (mGy): 57.7 DLP: (mGycm): 1231 Technique: Multiple CT axial sections of the brain have been obtained, 5 mm slice thickness. Contrast has not been administered. 2-D sagittal, coronal reconstructions have been obtained Low dose protocols were performed. One or more of the following dose reduction techniques were used; automated exposure control, adjustment of the mA and/or KV according to patient size, use of iterative reconstruction technique. Findings: No significant ventricular enlargement. Intra-axial or extra-axial hemorrhage density is not seen. No mass effect or midline shift Basal cisterns are not remarkable. Fourth ventricle is midline. Cranial vault intact. Impression: Negative for acute hemorrhage, mass effect or midline shift Advise clinical correlation and follow-up accordingly
--- NOTE | 2025-04-24 17:12 | PD.EDRME ---
Rapid Medical Screening Exam RME Arrival date/time: 04/24/25 16:44 Chief Complaint: General Adult/Misc Complain Time Seen by Provider: 04/24/25 17:01 Vital signs: Vital Signs Pulse Rate 72 04/24/25 17:09 Respiratory Rate 22 H 04/24/25 17:09 Blood Pressure 140/81 H 04/24/25 17:09 Pulse Oximetry (%) 94 L 04/24/25 17:09 Oxygen Delivery Method Nasal Cannula 04/24/25 17:09 Oxygen Flow Rate 2 04/24/25 17:09 RME Narrative: 74 year old male with history of COPD on 2L nasal cannula, hypertension, BPH presents to the ED for assessment of possible stoke today. Per patient and the daughter, the patient has had symptoms on/off for years which include pain and weakness in both shoulders. States he has been evaluated in the ED for similar shoulder pain/weakness and told he is fine and discharged home. However, today while at PCP office, the patient had complained of the left shoulder feeling weak beginning 1 week ago. In the ED, he denies any weakness and only complains of pain. The daughter expressed concerns of the patient possibly developing dementia. LKWT 1 week ago. Exam: On exam, there is no facial asymmetry, sensation is intact, has equal strength in all extremities. Clinical Impression: Chronic pain, weakness, CVA, TIA
[2025-04-24 18:16] LABS: Collection Type, Urine Clean Catch
[2025-04-24 18:21] LABS: Basophils # (Auto) 0.1 Thou/mm3 (0.0-0.2); Basophils % (Auto) 2 % (0-2.5); Eosinophils # (Auto) 0.8 Thou/mm3 (0.0-0.5); Eosinophils % (Auto) 11 % (0-10); Hematocrit 47.3 % (41.0-53.0); Hemoglobin 16.6 g/dL (13.5-16.0); Immature Granulocytes Auto 0.03 Thou/mm3 (0.00-0.00); Lymphocytes # (Auto) 1.9 Thou/mm3 (1.0-4.8); Lymphocytes % (Auto) 27 % (10-50); Mean Corpuscular HGB Conc 35.1 g/dl (31.0-37.0); Mean Corpuscular Hemoglobin 31.1 pg (25.0-35.0); Mean Corpuscular Volume 89 fL (80-100); Monocytes # (Auto) 0.7 Thou/mm3 (0.0-0.8); Monocytes % (Auto) 9 % (0-12); Neutrophils # (Auto) 3.6 Thou/mm3 (1.8-7.7); Neutrophils % (Auto) 51 % (37-80); Nucleated Red Blood Cell # 0.00 Thou/mm3 (0.00-0.00); Nucleated Red Blood Cell % 0 /100 WBC (0); Platelet Count 178 Thou/mm3 (140-440); RDW Standard Deviation 40.7 fL (35.1-43.9); Red Blood Count 5.33 Miln/mm3 (4.50-5.90); White Blood Count 7.1 Thou/mm3 (3.8-10.6)
[2025-04-24 18:48] LABS: B-Type Natriuretic Peptide < 20 pg/mL (0-100)
[2025-04-24 18:52] LABS: Alanine Aminotransferase 24 U/L (10-49); Albumin, Serum 4.5 gm/dL (3.4-4.8); Albumin/Globulin Ratio 2.0 (1.2-2.2); Alkaline Phosphatase 100 U/L (46-116); Anion Gap 9 (7-16); Aspartate Amino Transferase 23 U/L (0-34); BUN/Creatinine Ratio 7 Ratio (12-20); Bilirubin,Total 0.7 mg/dL (0.3-1.2); Blood Urea Nitrogen 6 mg/dL (9-23); Calcium 9.9 mg/dL (8.3-10.6); Calcium (Corrected) 9.9 mg/dL (8.5-10.1); Carbon Dioxide 30.4 mMol/L (20.0-31.0); Chloride 104 mMol/L (98-107); Creatinine (Component) 0.9 mg/dL (0.6-1.3); Globulin 2.2 gm/dL (2.3-3.5); Glucose 95 mg/dL (74-106); Osmolality,Calculated 282 (275-295); Potassium 4.2 mMol/L (3.4-5.1); Sodium 143 mMol/L (136-145); Total Protein 6.7 gm/dL (5.7-8.2); Troponin I < 0.020 ng/mL (0.0-0.045); eGFR > 60 See Note
--- NOTE | 2025-04-24 19:06 | PD.EDADULT ---
ED General RME/HPI General Chief complaint: General Adult/Misc Complain Stated complaint: SENT BY PCP TO R/O STROKE Time Seen by Provider: 04/24/25 17:01 Arrival date/time: 04/24/25 16:44 RME / HPI RME / HPI narrative: 74 year old male with history of COPD on 2L nasal cannula, hypertension, BPH presents to the ED for assessment of possible stoke today. Per patient and the daughter, the patient has had symptoms on/off for years which include pain and weakness in both shoulders. States he has been evaluated in the ED for similar shoulder pain/weakness and told he is fine and discharged home. However, today while at PCP office, the patient had complained of the left shoulder feeling weak beginning 1 week ago. In the ED, he denies any weakness and only complains of pain. The daughter expressed concerns of the patient possibly developing dementia. [facility]KWT [address] Benítez?s Main ED Evaluation: 74yo male with a history of COPD, HTN, BPH presents to the ED after being sent over by his PCP. Daughter states while at the PCP's office today, patient was complaining of intermittent left-sided weakness x 1 week. Patient denies this, stating he has diffuse generalized body pain and feels fatigued after going to work. Daughter notes the patient ran out of his albuterol treatments at home. Denies any fever, chills, nausea, vomiting, or any other associated symptoms. NKA. Related Data Home Medications ?Medication ?Instructions ?Recorded ?Confirmed hydrocortisone 2.5 % topical cream 1 applic AL QDAY 03/29/24 03/20/25 with perineal applicator mesalamine 1,000 mg rectal 1,000 mg AL QHSPRN PRN Pain 03/29/24 03/20/25 suppository terbinafine HCl 250 mg tablet 250 mg PO QDAY 03/29/24 03/20/25 lisinopril 40 mg tablet 40 mg PO QDAY 11/17/24 03/20/25 Previous Rx's ?Medication ?Instructions ?Recorded acetaminophen 300 mg-codeine 30 mg 2 tab PO TID PRN pain #20 tabs 04/24/24 tablet methylprednisolone 4 mg tablets in 4 mg PO QDAY #21 tabs 07/15/24 a dose pack (Medrol (Jamin)) benzonatate 200 mg capsule 200 mg PO TID PRN cough #30 caps 07/17/24 albuterol sulfate 90 mcg/actuation 1 inh inhalation QID PRN shortness 02/22/25 aerosol inhaler of breath or wheezing #8.5 grams budesonide 160 mcg-glycopyr 9 2 inh inhalation BID #10.7 grams 02/22/25 mcg-formot 4.8 mcg/actuation HFA inhaler (Breztri Aerosphere) dextromethorphan-guaifenesin 10 10 ml PO Q4H PRN cough #237 mL 02/22/25 mg-100 mg/5 mL oral syrup albuterol sulfate 2.5 mg/0.5 mL 2.5 mg (0.5 mL) inhalation Q20M 04/24/25 solution for nebulization PRN shortness of breath or wheezing #30 ea naproxen 500 mg tablet (Naprosyn) 500 mg PO BID PRN pain #20 tabs 04/24/25 Allergies Allergy/AdvReac Type Severity Reaction Status Date / Time No Known Allergies Allergy Verified 03/20/25 14:06 Review of Systems Review of Systems Systems Reviewed: All systems reviewed, normal except as documented Past Medical History Past Medical History NEUROLOGIC: Positive Neurological Disorders and Migraine; Negative Seizures CARDIAC: Positive Cardiac Disorders and Hypertension; Negative Congestive Heart Failure RESPIRATORY: Positive Asthma and Pneumonia (1 YEAR AGO DUE TO COVID); Negative Chronic Obstructive Pulmonary Disease (COPD) GASTROINTESTINAL: Positive Gastrointestinal Disorders, Diverticulosis, Hemorrhoids and Gastroesophageal Reflux Disease GENITOURINARY: Positive Genitourinary Disorders, Prostate Cancer (had surgery) and Benign Prostatic Hyperplasia; Negative Renal Disease MUSCULOSKELETAL: Negative Musculoskeletal Disorders ENT: Positive Cataracts; Negative Glaucoma ENDOCRINE: Negative Endocrine Disorders, Diabetes Mellitus Type 1 or Diabetes Mellitus Type 2 HEMATOLOGIC: Negative Blood Disorders, Anemia or Sickle Cell Disease OTHER HISTORY: Positive Cancer and Prostate Cancer (had surgery); Negative Falls, Blood Transfusions, Anesthesia Reactions, MRSA, Chicken Pox, Measles or Mumps Surgical History SURGICAL: Positive Abdominal Surgery and Transurethral Resection Social History SMOKING STATUS: Never smoker SUBSTANCE USE: does not use ED Exam Narrative Physical exam: Generally patient is alert and in no obvious distress eyes showed mild discharge to medial portion of bilateral eyes but conjunctiva is nonerythematous, heart regular rate and rhythm, lungs show distant breath sounds bilaterally but with good air exchange, extremities show no edema, neurologic exam showed the patient be alert and oriented to name and the place but stated the year was 2023. There is no focal motor deficits to the neurological exam. Neck showed no bruits. Course Quality Measures none Orders Category Date Time Status CT head/brain wo con Stat Exams 04/24/25 17:11 Completed CXR2 [XR chest 2V] Stat Exams 04/24/25 17:11 Completed ABG [Arterial Blood Gas] Stat Lab 04/24/25 17:12 Ordered BNP [B-Type Natriuretic Peptide] Stat Lab 04/24/25 17:43 Completed CBC Stat Lab 04/24/25 17:43 Completed CMP [Comprehensive Metabolic Panel] Stat Lab 04/24/25 17:43 Completed Troponin I Stat Lab 04/24/25 17:43 Completed UA, C/S IF [Urinalysis, C/S if Indicated] Stat Lab 04/24/25 17:50 Completed Albuterol/Ipratr Rt Mary [Duoneb Rt Mary] Med 04/24/25 18:10 Discontinued 3 ml INH X1 ONE Ketorolac Inj [Toradol Inj] Med 04/24/25 19:20 Once 30 mg IM X1 ONE MethylPREDNISolone.* [SoluMEDROL Inj] Med 04/24/25 18:10 Discontinued 125 mg IVP X1 ONE Vital Signs Vital signs: Vital Signs Pulse Rate 72 04/24/25 17:09 Respiratory Rate 22 H 04/24/25 17:09 Blood Pressure 140/81 H 04/24/25 17:09 Pulse Oximetry (%) 94 L 04/24/25 17:09 Oxygen Delivery Method Nasal Cannula 04/24/25 17:09 Oxygen Flow Rate 2 04/24/25 17:09 Discharge Plan Plan Patient Disposition: HOME (Self Care) Prescriptions/Referrals Prescriptions/Med Rec: New albuterol sulfate 2.5 mg/0.5 mL solution for nebulization 2.5 mg inhalation Q20M PRN (Reason: shortness of breath or wheezing) Qty: 30 0RF Rx Instructions: for up to 3 doses naproxen [Naprosyn] 500 mg tablet 500 mg PO BID PRN (Reason: pain) Qty: 20 0RF No Action lisinopril 40 mg tablet 40 mg PO QDAY benzonatate 200 mg capsule 200 mg PO TID PRN (Reason: cough) Qty: 30 0RF mesalamine 1,000 mg suppository 1,000 mg AL QHSPRN PRN (Reason: Pain) Patient Comments: INSERTE 1 SUPPOSITORIO RECTALMENTE TODOS LOS D AL ACOSTARSE hydrocortisone 2.5 % cream with perineal applicator 1 applic AL QDAY Patient Comments: APLIQUE 1 GRAM RECTALMENTE DIARIO terbinafine HCl 250 mg tablet 250 mg PO QDAY Patient Comments: TOME 1 TABLETA POR V A ORAL TODOS LOS D acetaminophen-codeine 300-30 mg tablet 2 tab PO TID MDD 6 PRN (Reason: pain) Qty: 20 0RF methylprednisolone [Medrol (Jamin)] 4 mg tablets,dose pack 4 mg PO QDAY Qty: 21 0RF Breztri Aerosphere 160-9-4.8 mcg/actuation HFA aerosol inhaler 2 inh inhalation BID Qty: 10.7 0RF dextromethorphan-guaifenesin 10-100 mg/5 mL syrup 10 ml PO Q4H PRN (Reason: cough) Qty: 237 0RF albuterol sulfate 90 mcg/actuation HFA aerosol inhaler 1 inh inhalation QID PRN (Reason: shortness of breath or wheezing) Qty: 8.5 0RF Problem List Clinical Impression: Myalgia Patient/Caregiver Discharge Instructions Education Materials: ED Myalgias Additional Instructions: Medications as prescribed. Follow-up with your doctor as needed. Return to ER as needed or if condition worsens. Print Language: Romanian Stand Alone Forms: Anjana Award Info., Patient Portal Info Letter MDM Narrative MDM hospital course (for use when minimal MDM required): Scribe Attestation: 04/24/25 - Kailey Ferreira am scribing for and in the presence of Dr. Benítez. I interpreted all labs. Head CT was negative. Patient does not complain of weakness currently. He complains of overall body pain. This has been going on for over a week. Patient may have a degree of anxiety and may be early dementia. I do long discussion with the patient's family member at bedside and she is in agreement. Patient is given Toradol 30 mg IV for overall body pain. He will be started on Naprosyn. He is to take the albuterol solution for his nebulizer machine as well as prescribed. Follow-up with his doctor. Return to ER as needed or if condition worsens. At this time there is no clinical sign for stroke. Clinical Information Provided by: patient and family Medical Records reviewed [facility] [place] (Per chart review, patient was seen here on 02/22/25 for COPD.) Meds/Rx considered, not ordered None Labs/Rad/Tests considered, not ordered None Chronic Illness/Social Conditions Explain: Hx COPD/asthma on 2 L nasal cannula at night, HTN, BPH Labs Labs: interpreted by me Imaging Imaging interpretation: interpreted by me Imaging Interpretation(s): [place] [facility] Report Signed Patient: MARÍA ELENA MCCARTHY. Record#: [id number] Birthdate: 1950 Age/Sex: 74 / M Location: [facility] Attending Dr: Ordering Physician: Cortney Edmonds MD Date of Service: 04/24/25 Procedure(s): XR chest 2V Accession Number(s): [id number] cc: Dylan Cisse MD; Cortney Edmonds MD~ EXAMINATION: PA chest single view TECHNIQUE: Upright PA chest single view Date and time: April 24, 2025, 1728 hours Comparison 02/21/2025 INDICATIONS: Shortness of breath today. FINDINGS: Mild enlargement cardiac contour Ectatic thoracic aorta. Prominent vascular congestion. No lobar pneumonia Intact osseous structures IMPRESSION: Suspicious for early heart failure Dictated By: Dylan Cisse MD Signed By: <Electronically signed by Dylan Cisse MD in > 04/24/25 1745 [place] [facility] Report Signed Patient: MARÍA ELENA MCCARTHY. Record#: [id number] Birthdate: 1950 Age/Sex: 74 / M Location: [facility] Attending Dr: Ordering Physician: Cortney Edmonds MD Date of Service: 04/24/25 Procedure(s): CT head/brain wo con Accession Number(s): [id number] cc: Dylan Cisse MD; Cortney Edmonds MD~ Examination: CT brain head without contrast. 2-D sagittal coronal reconstructions Date and time of exam: April 24, 2025, 1925 hours INDICATIONS: Generalized weakness today CTDI: vol (mGy): 57.7 DLP: (mGycm): 1231 Technique: Multiple CT axial sections of the brain have been obtained, 5 mm slice thickness. Contrast has not been administered. 2-D sagittal, coronal reconstructions have been obtained Low dose protocols were performed. One or more of the following dose reduction techniques were used; automated exposure control, adjustment of the mA and/or KV according to patient size, use of iterative reconstruction technique. Findings: No significant ventricular enlargement. Intra-axial or extra-axial hemorrhage density is not seen. No mass effect or midline shift Basal cisterns are not remarkable. Fourth ventricle is midline. Cranial vault intact. Impression: Negative for acute hemorrhage, mass effect or midline shift Advise clinical correlation and follow-up accordingly Dictated By: Dylan Cisse MD Signed By: <Electronically signed by Dylan Cisse MD in OV> 04/24/25 0405 Medication Administration(s) Medication Administration History Discontinued Medications Albuterol/Ipratropium (Albuterol/Ipratropium (Duoneb) Rt Mary 3 Ml Nebu) 3 ml INH X1 ONE Stop: 04/24/25 18:11 Ketorolac Tromethamine (Ketorolac Inj 30 Mg/Ml Vial) 30 mg IM X1 ONE Stop: 04/24/25 19:21 Methylprednisolone Sodium Succinate (Methylprednisolone Sod Succ 62.5 Mg/Ml 2ml Vial) 125 mg IVP X1 ONE Stop: 04/24/25 18:11 see above Diagnosis Differential Diagnosis ED Complaint MDM: See MDM
[2025-04-24 19:15] LABS: Bilirubin,Urine Negative (Negative); Blood,Urine Negative (Negative); Clarity,Urine Clear (Clear/Hazy); Color,Urine Yellow (Lt Yel-Yel); Culture Indicated,Urine Not Indicated; Glucose, Urine Negative (Negative); Ketones,Urine Negative (Negative); Leukocyte Esterase,Urine Negative (Negative); Nitrite,Urine Negative (Negative); PH,Urine 6.5 (5.0-7.0); Protein,Urine Trace (Neg - Trace); RBC,Urine 2 /hpf (0-3); Specific Gravity,Urine 1.025 (1.001-1.035); Squamous Epithelial Cell,Urine 2 /hpf (0-5); Urobilinogen,Urine Negative mg/dL (0.0-1.0); WBC,Urine 1 /hpf (0-5)
[2025-04-24 19:35] VITALS: BP 117/83; PULSE 63; RESP 22; TEMP 36.6; O2SAT 96
[2025-04-24] MEDS: ALBUTEROL/IPRATROPIUM (Duoneb) RT SOL 3 ML NEBU INH (19:43)
[2025-04-24 19:45] VITALS: PULSE 67; RESP 22; O2SAT 99
[2025-04-24 19:54] LABS: Base Excess 4 (-3-3); HCO3 31 mEq/L (20-26); Inspired Oxygen, FIO2 21 %; O2 Saturation 100 % (91-98); PCO2 54 mmHg (32.0-48.0); PO2 202 mmHg (83-108); pH, Arterial 7.37 (7.35-7.45)
[2025-04-24 19:55] LABS: Allen Test Performed/OK; Puncture Site Right Radial
[2025-04-24] MEDS: KETOROLAC INJ 30 MG/ML VIAL IM (20:27)
[2025-04-24 20:29] VITALS: BP 112/72; PULSE 76; RESP 18; TEMP 36.6; O2SAT 95
== END 2025-04-24 20:31 | disposition home or self-care (01) ==
LOC: SERX 20:05
PROVIDERS: Emergency Medicine; Emergency Provider Emergency Medicine; PCP Registered Nurse Community Health
DX: M79.18 Myalgia, other site (principal); R53.1 Weakness; R06.02 Shortness of breath
CPT/HCPCS: 36415; 36600; 70450; 71046; 80053; 81001; 82803; 83880; 84484; 85025; 94640; 96372; 99284; A9270; J1885